=== PATIENT | female | born 1990 | race Caucasian/White ===

== ENCOUNTER → 2018-08-28 09:20 | Outpatient (CLI) | payer OTHER, SELFPAY ==
[2018-08-28 09:59] LABS: Add Manual Diff / Slide Review NO; Basophils Absolute Auto 100 /uL (0-100); Basophils Percent Auto 0.7 % (0-2); Eosinophils Absolute Auto 100 /uL (0-450); Eosinophils Percent Auto 1.6 % (2-4); Hemoglobin 14.7 g/dL (12.0-16.0); Lymphocytes Absolute Auto 2200 /uL (1100-4500); Lymphocytes Percent Auto 26.1 % (25-40); Mean Corpuscular HGB Conc 33.5 % (30-36); Mean Corpuscular Hemoglobin 28.7 PG (26-34); Mean Corpuscular Volume 85.7 fL (80-100); Monocytes Absolute Auto 500 /uL (0-900); Monocytes Percent Auto 6.6 % (3-14); Neutrophils Absolute Auto 5400 /uL (1500-7000); Platelet Count 255 X10^3/uL (150-400); Red Blood Cell Count 5.13 X10^6/uL (4.0-5.2); Red Cell Distribution Width 13.7 % (11.6-14.8); White Blood Cell Count 8.3 X10^3/uL (4.5-11.0)
[2018-08-28 11:05] LABS: Alanine Aminotransferase 32 IU/L (9-52); Albumin 4.8 g/dL (3.5-5.0); Albumin Globulin Ratio 1.5 (1.0-2.8); Alkaline Phosphatase 51 U/L (38-126); Aspartate Aminotransferase 22 IU/L (14-36); BUN Creatinine Ratio 23.3 (6-22); Blood Urea Nitrogen 14 mg/dL (7-17); Calcium 9.6 mg/dL (8.4-10.2); Carbon Dioxide 24 mmol/L (22-32); Chloride 100 mmol/L (98-107); Estimated Glomerular Filt Rate > 60.0 mL/min (>60); Globulin 3.1 g/dL (1.7-4.1); Glucose 93 mg/dL (70-100); HEMOLYSIS 23 (0-50); Sodium 137 mmol/L (137-145); Total Protein 7.9 g/dL (6.3-8.2)
== END ==
PROVIDERS: PCP Family Medicine; Visit Provider Family Medicine
DX: R63.5 Abnormal weight gain (principal); Z90.49 Acquired absence of other specified parts of digestive tract
CPT/HCPCS: 36415; 80053; 84443; 85025

== ENCOUNTER 2018-10-02 10:15 | Outpatient (RCR) | payer OTHER, SELFPAY ==
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
--- NOTE | 2018-09-29 08:55 | PT.OPPOC ---
Current Diagnoses Cervicalgia (09/28/18) Pain in left lower leg (09/28/18) Provider Visit Care Team Role Provider Type Ave Gaines MD Attending Provider Physician Primary Care Provider Specialty: Family Practice Address: [address] [place] [address], [facility] Email: [email or web address] Plan Of Care PT-OP-T Assessment and Plan Start: 09/28/18 13:30 Freq: Status: Active Protocol: Document 09/28/18 13:36 LRN (Rec: 09/28/18 15:19 LRN [id number]) Physical Therapy Assessment Evaluation Complexity Number of Personal Factors/Comorbidities 1-2 Number of Body Systems Impaired 4 or More Clinical Presentation at Evaluation Stable Impairments Impairments Activity Tolerance Pain Posture ROM Soft Tissue Mobility Strength Transfers Goals Three Impairment 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 LTG Duration 11/29/18 Two Impairment L lower leg pain limiting activity tolerance Mcc Goal (LTG) Decrease L lower leg pain to no greater than 1/10 with pt able to return to weigh lifting and participation in recreational activities with minimal onset of pain that pt is able to control with positioning and exercise. LTG Duration 11/29/18 One Impairment Lacks appropriate self care HEP Mcc Goal (LTG) Pt will be independent with a self care HEP. LTG Duration 11/29/18 Assessment Summary Assessment Pt presents with signs and symptoms of low back mechanical and soft tissue dysfunction related to her L lower leg pain, presenting with a +PSLR and responding well to manual lumbar traction . She has soft tissue dysfunction of the lumbar paraspinal, upper gluteals and to a lesser extent the L lower leg musculature with muscle guarding present. LE weakness of L5 myotome is present. She has a mechanical dysfunction with her lumbar spine and sacrum in a left rotation and increased lordosis. The pt needs further postural training, soft tissue and neural stretching, and strengthening of the L LE and core. Physical Therapy Plan Frequency and Duration Frequency of Treatment 2x/Week Plan of Care Start Date 09/28/18 Plan of Care End Date 11/30/18 Therapeutic Interventions Therapeutic Interventions Aquatic Therapy Balance Training Home Exercise Program Manual Therapy Neuromuscular Re-education Patient/Caregiver Education Self-Care/Home Management Soft Tissue Mobilization Therapeutic Exercises Modalities Electric Stimulation Hot Packs Traction- Mechanical Ultrasound Next Visit Focus/Plan Next Note Type Progress Note Next Visit Plan Review and issue HEP handout ( LE hamstring stretch), postural training, L ankle strengthening, R gluteal strengthening, sacral mob, LB care for probable herniated L5 disc. Have pt complete a functional assessment of LE's: LEFS or FGA. Might check balance. Plan of Care Dates Plan of Care Start Date 09/28/18 Plan of Care End Date 11/30/18 Please Sign and Return: I have reviewed this Plan of Care and certify that the skilled therapy services above are required to meet the patient?s needs. Physician Signature Date Printed Name and Credentials Clinical Instructor Signature Printed Name and Credentials
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
== END 2018-10-03 12:26 ==
LOC: PHYS 10:15
PROVIDERS: PCP Family Medicine; Visit Provider Family Medicine
DX: M54.2 Cervicalgia (principal); M79.662 Pain in left lower leg
CPT/HCPCS: 97110; 97140; 97161; 97535

== ENCOUNTER → 2020-06-05 08:09 | Outpatient (CLI) | payer OTHER, SELFPAY ==
--- NOTE | 2020-06-05 08:12 | DI.US.S_ITS ---
PROCEDURE: US ABDOMEN COMPLETE INDICATIONS: HISTORY LIVER TUMOR/RESECTION TECHNIQUE: Real-time scanning was performed of the abdominal and retroperitoneal organs, with image documentation. COMPARISON: [facility], MR, ABDOMEN W&WO CONTRAST, 12/31/2016, 14:59. [facility], MR, ABDOMEN W&WO CONTRAST, 05/06/2014, 12:51. [facility], CT, ABDOMEN W&WO CONTRAST, 10/17/2013, 10:59. [facility], US, ABDOMEN COMPLETE, 10/02/2012, 8:47. FINDINGS: Liver: The left hepatic lobe has been resected. There is a solid nonvascular mass with an echogenic center and a hypoechoic rim seen involving right posterior lobe of the liver that measures up to 1.8 cm. The main portal vein demonstrates normal size and is patent. Gallbladder: This level is improved compared to the prior examination. Biliary ducts: Intrahepatic bile ducts are non-dilated. Extrahepatic bile duct caliber measures 8 mm, which is within normal limits for a postcholecystectomy patient. Pancreas: Not seen, obscured by overlying bowel gas. Spleen: Spleen is normal in size and homogeneous in echotexture. Kidneys: Kidneys are normal in size and echotexture. Right kidney measures 11.2 cm long; left kidney measures 10.9 cm long. No hydronephrosis or nephrolithiasis. No solid masses. The renal cortex measures within normal limits for thickness. Aorta: Visualized aorta is normal in caliber at less than 3 cm. Iliacs: Proximal common iliac arteries are normal in caliber at less than 2.5 cm. IVC: Not seen. Miscellaneous: No free abdominal fluid. IMPRESSION: Within the right liver, there is lesion that correlates well with the previously seen liver lesion. However, if clinically appropriate, please consider a dedicated follow-up liver MRI (without and with contrast) for further evaluation (assuming that there is no contraindication). Left hepatic lobectomy. Status post cholecystectomy, without donavan biliary dilatation. Dictated by: Lance Riley M.D. on 06/05/2020 at 10:27 Approved by: Lance Riley M.D. on 06/05/2020 at 10:30
--- NOTE | 2020-06-05 08:12 | DI.RAD.S_ITS ---
PROCEDURE: XR ANKLE LT MIN 3V INDICATIONS: chronic ankle pain, remote h/o injury TECHNIQUE: 3 views of the ankle were acquired. COMPARISON: None. FINDINGS: Bones: No fractures or dislocations. Ankle mortise is normally aligned. No suspicious bony lesions. Mild tibiotalar and intertarsal joint degeneration. Soft tissues: No tibiotalar joint effusion. Achilles tendon appears normal. IMPRESSION: No fracture or dislocation. Mild degenerative joint disease. Dictated by: Key Brandt M.D. on 06/05/2020 at 17:26 Approved by: Key Brandt M.D. on 06/05/2020 at 17:27
[2020-06-05 09:58] LABS: Alanine Aminotransferase 25 IU/L (<35); Albumin 4.8 g/dL (3.5-5.0); Albumin Globulin Ratio 1.5 (1.0-2.8); Alkaline Phosphatase 53 U/L (38-126); Aspartate Aminotransferase 30 IU/L (14-36); BUN Creatinine Ratio 20.8 (6-22); Bilirubin Total 1.3 mg/dL (0.2-1.3); Blood Urea Nitrogen 15 mg/dL (7-17); Calcium 9.4 mg/dL (8.4-10.2); Carbon Dioxide 29 mmol/L (22-32); Chloride 102 mmol/L (98-107); Estimated Glomerular Filt Rate > 60.0 mL/min (>60); Globulin 3.2 g/dL (1.7-4.1); Glucose 100 mg/dL (70-100); HEMOLYSIS < 15 (0-50); Potassium 4.3 mmol/L (3.4-5.1); Sodium 137 mmol/L (137-145)
[2020-06-05 10:12] LABS: Add Manual Diff / Slide Review NO; Basophils Absolute Auto 100 /uL (0-100); Eosinophils Absolute Auto 200 /uL (0-450); Hematocrit 42.7 % (36-46); Hemoglobin 14.5 g/dL (12.0-16.0); Lymphocytes Absolute Auto 2500 /uL (1100-4500); Lymphocytes Percent Auto 32.5 % (25-40); Mean Corpuscular HGB Conc 33.9 % (30-36); Mean Corpuscular Volume 85.6 fL (80-100); Monocytes Absolute Auto 600 /uL (0-900); Monocytes Percent Auto 7.3 % (3-14); Neutrophils Absolute Auto 4400 /uL (1500-7000); Neutrophils Percent Auto 57.2 % (50-75); Platelet Count 295 X10^3/uL (150-400); Red Blood Cell Count 4.99 X10^6/uL (4.0-5.2); Red Cell Distribution Width 13.1 % (11.6-14.8); White Blood Cell Count 7.7 X10^3/uL (4.5-11.0)
[2020-06-05 10:27] LABS: TSH w/ Reflex to FT4 1.35 uIU/mL (0.47-4.68)
== END ==
PROVIDERS: PCP Family Medicine; Referring Provider Family Medicine; Visit Provider Family Medicine
DX: D49.0 Neoplasm of unspecified behavior of digestive system (principal); M25.572 Pain in left ankle and joints of left foot; E28.2 Polycystic ovarian syndrome; M19.072 Primary osteoarthritis, left ankle and foot; R93.2 Abnormal findings on diagnostic imaging of liver and biliary tract
CPT/HCPCS: 36415; 73610; 76700; 80053; 84443; 85025

== ENCOUNTER → 2020-07-02 08:35 | Outpatient (CLI) | payer OTHER, SELFPAY ==
--- NOTE | 2020-07-02 08:37 | DI.MRI.S_ITS ---
PROCEDURE: MR ABDOMEN WO/W CON INDICATIONS: hx of hepatic lobe resection TECHNIQUE: Coronal HASTE, axial 2D FLASH in- and [id number]; axial breath-hold T2 FSE. Dynamic axial VIBE during the administration of contrast; post-contrast coronal VIBE or 2D FLASH with fat saturation from the hepatic dome to the iliac crests. Optional diffusion weighted imaging and ADC may be performed. COMPARISON: [facility], US, ABDOMEN COMPLETE, 02/28/2007, 17:35. CT, ABDOMEN/PELVIS WITH CONTRAST, 02/28/2007, 19:25. CT, ABDOMEN W&WO CONTRAST, 10/30/2012, 10:00. [facility], CT, ABDOMEN W&WO CONTRAST, 10/17/2013, 10:59. [facility], MR, ABDOMEN W&WO CONTRAST, 05/06/2014, 12:51. [facility], MR, ABDOMEN W&WO CONTRAST, 12/05/2013, 20:02. [facility], MR, ABDOMEN W&WO CONTRAST, 12/31/2016, 14:59. [facility], US, US ABDOMEN COMPLETE, 06/05/2020, 8:28. FINDINGS: Image quality: Excellent. Lung bases: No basal pleural effusions. Heart size is normal. Solid organs: There are postsurgical changes related to remote left hepatic lobe resection with compensatory hypertrophy of the right hepatic lobe. Three lesions are identified in liver, demonstrating similar signal characteristics and enhancing pattern (hypointense T1, hyperintense T2, restricted diffusion and postcontrast enhancement). Lesion #1 is seen central liver within segment 8 measuring 1.5 cm. Lesion #2 is in the segment 6 measuring 1.7 cm. Lesion #3 is in segment 5 measuring 1.5 cm. Lesion #1 and #2 were present on 12/31/2016 and appear minimally changed in size but appear more conspicuous with stronger contrast enhancement. The lesion #3 is new. Gallbladder is surgically absent. Biliary system is non dilated. Pancreas is normal in morphology. Spleen is normal in size and enhancement. No adrenal nodules. Both kidneys demonstrate normal size and enhancement, without hydronephrosis. Nodes and vessels: No retroperitoneal or mesenteric adenopathy by size criteria. Aorta and inferior vena cava are normal in size. Bowel and peritoneum: Unenhanced bowel loops are normal in caliber. No free fluid. Bones and soft tissues: No ventral hernias. Bone marrow is normal in overall signal. IMPRESSION: 1. Three hepatic masses are identified on the current examination. Lesion #1 and #2 were present on the last exam dated 12/31/2016 and appear minimally changed. Lesion #3 is new. All 3 lesions demonstrate identical signal characteristics with progressive accumulation of contrast relative to normal liver parenchyma on delayed images rather than contrast washout. These lesions are likely benign, such as focal nodular hyperplasia or atypical hemangiomas. Since there is interval development of a new lesion, close imaging follow-up is suggested. Next follow-up imaging may be obtained in 3-6 months. Dictated by: Key Brandt M.D. on 07/02/2020 at 11:16 Approved by: Key Brandt M.D. on 07/02/2020 at 18:10
== END ==
PROVIDERS: PCP Family Medicine; Referring Provider Family Medicine; Visit Provider Family Medicine
DX: D13.4 Benign neoplasm of liver (principal)
CPT/HCPCS: 74183

== ENCOUNTER → 2020-08-25 09:11 | Outpatient (CLI) | payer OTHER, SELFPAY ==
[2020-08-25 09:35] LABS: Add Manual Diff / Slide Review NO; Basophils Absolute Auto 100 /uL (0-100); Basophils Percent Auto 0.9 % (0-2); Eosinophils Absolute Auto 200 /uL (0-450); Eosinophils Percent Auto 2.6 % (2-4); Hematocrit 42.8 % (36-46); Hemoglobin 14.1 g/dL (12.0-16.0); Lymphocytes Absolute Auto 2100 /uL (1100-4500); Lymphocytes Percent Auto 33.5 % (25-40); Mean Corpuscular Hemoglobin 28.6 PG (26-34); Mean Corpuscular Volume 86.6 fL (80-100); Monocytes Absolute Auto 400 /uL (0-900); Monocytes Percent Auto 7.1 % (3-14); Neutrophils Absolute Auto 3500 /uL (1500-7000); Neutrophils Percent Auto 55.9 % (50-75); Platelet Count 274 X10^3/uL (150-400); Red Blood Cell Count 4.94 X10^6/uL (4.0-5.2); Red Cell Distribution Width 13.6 % (11.6-14.8); White Blood Cell Count 6.2 X10^3/uL (4.5-11.0)
[2020-08-25 10:48] LABS: Alanine Aminotransferase 27 IU/L (<35); Albumin 4.8 g/dL (3.5-5.0); Albumin Globulin Ratio 1.7 (1.0-2.8); Alkaline Phosphatase 45 U/L (38-126); Aspartate Aminotransferase 32 IU/L (14-36); BUN Creatinine Ratio 16.9 (6-22); Bilirubin Total 0.8 mg/dL (0.2-1.3); Blood Urea Nitrogen 13 mg/dL (7-17); Calcium 10.1 mg/dL (8.4-10.2); Carbon Dioxide 30 mmol/L (22-32); Chloride 101 mmol/L (98-107); Estimated Glomerular Filt Rate > 60.0 mL/min (>60); Globulin 2.9 g/dL (1.7-4.1); Glucose 101 mg/dL (70-100); HEMOLYSIS < 15 (0-50); Potassium 4.7 mmol/L (3.4-5.1); Sodium 137 mmol/L (137-145); Total Protein 7.7 g/dL (6.3-8.2)
[2020-08-25 10:53] LABS: Free T4, Direct Thyroxine 0.86 ng/dL (0.78-2.19)
[2020-08-25 11:07] LABS: Thyroid Stimulating Hormone 1.56 uIU/mL (0.47-4.68)
== END ==
PROVIDERS: PCP Registered Nurse; Referring Provider Registered Nurse; Visit Provider Registered Nurse
DX: R53.83 Other fatigue (principal); Z83.49 Family history of other endocrine, nutritional and metabolic diseases
CPT/HCPCS: 36415; 80053; 84439; 84443; 85025

== ENCOUNTER → 2023-05-19 07:07 | Outpatient (CLI) | payer OTHER, SELFPAY ==
[2023-05-19 10:58] LABS: Vitamin B12 Reflex MMA if <400 373 pg/mL (239-931)
[2023-05-19 11:29] LABS: Vitamin D 25 Hydroxy (D3) 27.1 ng/mL (30.0-100.0)
[2023-05-24 01:13] LABS: Methylmalonic Acid,Serum 160 nmol/L (0-378)
== END ==
LOC: LAB 07:07
PROVIDERS: PCP Family Medicine; Referring Provider Family Medicine; Visit Provider Family Medicine
DX: Z13.21 Encounter for screening for nutritional disorder (principal)
CPT/HCPCS: 36415; 82306; 82607; 83921

== ENCOUNTER → 2023-09-06 08:44 | Outpatient (CLI) | payer OTHER, SELFPAY ==
[2023-09-06 09:03] LABS: Add Manual Diff / Slide Review NO; Basophils Absolute Auto 100 /uL (0-100); Basophils Percent Auto 0.9 % (0-2); Eosinophils Absolute Auto 200 /uL (0-450); Eosinophils Percent Auto 1.4 % (2-4); Hematocrit 41.6 % (36-46); Hemoglobin 14.2 g/dL (12.0-16.0); Lymphocytes Absolute Auto 2300 /uL (1100-4500); Lymphocytes Percent Auto 19.7 % (25-40); Mean Corpuscular HGB Conc 34.1 % (30-36); Mean Corpuscular Hemoglobin 28.9 PG (26-34); Mean Corpuscular Volume 84.8 fL (80-100); Monocytes Absolute Auto 700 /uL (0-900); Monocytes Percent Auto 6.4 % (3-14); Neutrophils Absolute Auto 8400 /uL (1500-7000); Neutrophils Percent Auto 71.6 % (50-75); Platelet Count 291 X10^3/uL (150-400); Red Cell Distribution Width 13.3 % (11.6-14.8); White Blood Cell Count 11.7 X10^3/uL (4.5-11.0)
[2023-09-06 09:29] LABS: Alanine Aminotransferase 31 IU/L (<35); Albumin 4.9 g/dL (3.5-5.0); Albumin Globulin Ratio 1.5 (1.0-2.8); Alkaline Phosphatase 53 U/L (38-126); Aspartate Aminotransferase 24 IU/L (14-36); Bilirubin Total 1.1 mg/dL (0.2-1.3); Bilirubin Unconjugated 1.1 mg/dL (0.0-1.1); Globulin 3.2 g/dL (1.7-4.1); HEMOLYSIS < 15 (0-50); Total Protein 8.1 g/dL (6.3-8.2)
[2023-09-06 09:54] LABS: Hepatitis B Surface Antigen NEGATIVE s/c (NEGATIVE); Rubella Antibody IgG 21.8 IU/mL (>15)
[2023-09-06 10:10] LABS: HIV 1 & 2 Ab/Ag 4th Gen Combo NEGATIVE (NEGATIVE); Hep C Virus Ab w/Reflex Quant NEGATIVE s/c (NEGATIVE)
[2023-09-07 08:22] LABS: RPR Screen Non Reactive (Non Reactive)
[2023-09-07 11:36] LABS: Varicella IgG Antibody 1793 index (Immune >165)
== END ==
PROVIDERS: PCP Family Medicine; Referring Provider Obstetrics & Gynecology; Visit Provider Obstetrics & Gynecology
DX: Z34.00 Encounter for supervision of normal first pregnancy, unspecified trimester (principal); D49.0 Neoplasm of unspecified behavior of digestive system
CPT/HCPCS: 36415; 80055; 80076; 86787; 86803; 86850; 86900; 86901; 87389

== ENCOUNTER → 2023-09-09 16:24 | Outpatient (CLI) | payer OTHER, SELFPAY ==
[2023-09-09 18:59] LABS: HCG Quantitative /Beta subunit 70655 mIU/mL
== END ==
PROVIDERS: PCP Family Medicine; Referring Provider Obstetrics & Gynecology; Visit Provider Obstetrics & Gynecology
DX: O20.9 Hemorrhage in early pregnancy, unspecified (principal)
CPT/HCPCS: 36415; 84702

== ENCOUNTER → 2023-09-12 07:24 | Outpatient (CLI) | payer OTHER, SELFPAY ==
[2023-09-12 10:08] LABS: HCG Quantitative /Beta subunit 67175 mIU/mL
== END ==
PROVIDERS: PCP Family Medicine; Referring Provider Obstetrics & Gynecology; Visit Provider Obstetrics & Gynecology
DX: O20.9 Hemorrhage in early pregnancy, unspecified (principal)
CPT/HCPCS: 36415; 84702

== ENCOUNTER → 2023-09-15 07:35 | Outpatient (CLI) | payer OTHER, SELFPAY ==
--- NOTE | 2023-09-15 07:36 | DI.US.S_ITS ---
PROCEDURE: US OB <= 14 WEEKS FETUS INDICATIONS: formal dating, possible arcuate vs uterine septum OUTSIDE/PRIOR DATING DATA: Last menstrual period (LMP): 07/06/2023. LMP-based estimated date of delivery (CHARMAINE): 04/11/2024. First dating scan (date and location): 09/06/2023, outside. Estimated date of delivery (CHARMAINE) from first dating scan: 04/22/2024. TECHNIQUE: Real-time scanning was performed of the fetus and maternal pelvic organs, with image documentation. Endovaginal scanning was also performed to better visualize the fetus and maternal ovaries. COMPARISON: None. FINDINGS: Embryo: pole is identified with crown-rump length of 1.97 centimeters, consistent with 8 weeks and 4 days. Yolk sac is present. There is a cystic structure adjacent to the cord near the placental cord insertion measuring 7 x 6 x 6 millimeters. Heart rate: 182 Subchronic bleed measuring 1.6 x 0.9 x 0.6 centimeters. Maternal organs: Ovaries are within normal limits. Cervix is closed measuring 3.9 centimeters. Uterus appears within normal limits, no anatomical variations are identified. IMPRESSION: 1. Single live intrauterine consistent with 8 weeks and 4 days. 2. Cystic structure near the placental cord insertion measuring 7 millimeters. Recommend attention on follow-up. 3. Subchronic hemorrhage measuring up to 1.6 centimeters. 4. Uterus appears within normal limits. No anatomical variations are identified. We strive to produce accurate, complete, and clear reports of imaging services. To assist us in improving patient care, this report was composed using standard report templates and voice recognition software. Therefore, it may contain abnormal punctuation, insertions and/or omissions. Occasional wrong-word or sound-alike substitutions may occur. Though we review the report and make efforts to correct it, we do recommend that the report be read carefully in proper context to recognize any text inaccuracies. Dictated by: Padilla Paul M.D. on 09/15/2023 at 11:57 Approved by: Padilla Paul M.D. on 09/15/2023 at 12:00
--- NOTE | 2023-09-15 07:43 | DI.US.S_ITS ---
PROCEDURE: US ABDOMEN LIMITED INDICATIONS: hx hepatic neoplasm, currently TECHNIQUE: Real-time scanning was performed of the abdominal and retroperitoneal organs, with image documentation. COMPARISON: [facility], US, US ABDOMEN COMPLETE, 06/05/2020, 8:28. [facility], MR, MR ABDOMEN WO/W CON, 07/02/2020, 8:50. FINDINGS: Liver: Increased liver echogenicity. Hypoechoic region along the hepatorenal fossa measuring 4.3 x 4.4 x 3.2 centimeters, not corresponding to any lesion seen on comparison MRI. Additional hyperechoic lesions are identified. These measure as follows: -1.7 x 1.4 x 1.6 centimeter lesion in segment 8, grossly unchanged from comparison MRI. -3.9 x 2.9 x 4.3 centimeter lesion in segment 5, without corresponding lesion on MRI. Gallbladder: Absent. Biliary ducts: Intrahepatic bile ducts are non-dilated. Extrahepatic bile duct caliber measures 6 mm. Normal is 6-7 mm or less in diameter, or 10 mm or less post-cholecystectomy. Pancreas: Visualized portions of the pancreas are sonographically normal. Miscellaneous: No free abdominal fluid. Right kidney measures 12.9 centimeters, with an extrarenal pelvis. No hydronephrosis. heart tones are present, measuring 182 beats per minute. IMPRESSION: Stable segment 8 liver lesion. Segment 5 liver lesion measures 3.9 x 2.9 x 4.3 centimeters, without corresponding lesion seen on comparison MRI. Of note: Lesions such as focal nodular hyperplasia are notoriously difficult to visualize under ultrasound, so comparison is likely less specific than desired. New hypoechoic region along the hepatorenal fossa, possibly fat sparing. No corresponding MRI lesion. Dictated by: Travis Portillo M.D. on 09/15/2023 at 15:11 Approved by: Travis Portillo M.D. on 09/15/2023 at 15:16
== END ==
PROVIDERS: PCP Family Medicine; Referring Provider Family Medicine; Visit Provider Family Medicine
DX: Z34.00 Encounter for supervision of normal first pregnancy, unspecified trimester (principal); K76.89 Other specified diseases of liver; Z3A.14 14 weeks gestation of pregnancy; Z90.49 Acquired absence of other specified parts of digestive tract
CPT/HCPCS: 76705; 76801; 76817

== ENCOUNTER 2023-09-24 07:16 | Emergency (ER) | payer OTHER, SELFPAY ==
[2023-09-24 07:24] VITALS: BP 144/84; PULSE 98; RESP 18; TEMP 36.9; O2SAT 99; BMI 36.1
[2023-09-24 07:30] VITALS: BP 141/75; PULSE 88; O2SAT 98
--- NOTE | 2023-09-24 07:36 | ED_ITS ---
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 Patient presents with complaint of right foot pain. Patient states it is throughout the entire foot little bit more on the lateral side but over onto the medial side as well. She does have little bit of discomfort up into his calf. She states she always has some calf discomfort. Patient states was very painful to weightbear yesterday less so today. She is still quite uncomfortable. She has not noticed any redness, warmth or swelling or ecchymosis. She does get acupuncture. Patient denies any trauma or injuries that she recalls. She has not appreciate any other changes to her lower extremity. She does not typically get symptoms in her foot. Patient states her other foot has felt fine. Patient laceration approximately 10 weeks states no other regular medical issues. She is on prenatals but no prescription medications. No tobacco, no regular alcohol, no recreational drugs. Related Data Home Medications Medication Instructions Recorded Confirmed vitamin-ferrous sulfate tab PO 08/30/23 09/06/23 27 mg iron-folic acid 0.8 mg tablet Allergies Allergy/AdvReac Type Severity Reaction Status Date / Time amoxicillin [AMOXICILLIN] Allergy Intermediate Rash Verified 09/06/23 08:00 Review of Systems Review of Systems ROS Unobtainable: All systems reviewed & are unremarkable except as noted in HPI and below Patient History Medical History Chronic diarrhea Presence of intrauterine contraceptive device (04/27/17) Generalized anxiety disorder Surgical History History of surgery of liver [place] teeth extracted Status post cholecystectomy (~2006) Family History Mother Bipolar disorder Alcoholism Father Hypertension Drug abuse Heart disease Grandmother Hypertension Stroke Grandfather Hypertension Diabetes mellitus Alcoholism Uncle Heart disease Social History marital status: number of children: 1 (Pt is the guardian of her youngest brother) household members: spouse and family (legal guardian of youngest brother) lives independently: Yes caregiver/support person: Yes housing: house pets and animals: Yes (dogs, cat, chickens; aware of precautions, managing litter box) education level: college (bachelor's degree) occupational status: 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, 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)) current occupational exposures/hazards: Yes ([employer]) special kermit needs: No travel history: recent ([place]) seatbelt use: always helmet use: Yes water heater temp set < 120 deg: Yes working smoke detector in home: Yes fire extinguisher in home: No (Will get one today) carbon monox detector in home: Yes firearms in home: Yes firearms unloaded and locked: Yes do you feel safe at home: Yes Smoking Status: Never smoker second hand exposure: No alcohol intake: former (1-2/week when not ) substance use type: marijuana (not while /) during the past year weight has: increased > 10 lbs well-balanced diet: daily or most days daily servings fruits/ve or more times/day caffeine: Yes (not since learning of , causing anxiety now) Type(s) of exercise: walking, bicycling, weight lifting and other (roller blading) frequency: 3-4 times per week Smoking Status: Never smoker alcohol intake frequency: holidays/special occasions only Substance Use Type: marijuana Exam Narrative Exam Narrative: GENERAL: Alert and oriented x three, female in mild distress HEENT: Head normocephalic, atraumatic, EOMI, pupils reactive, face symmetric, moist mucous membranes NECK: Supple, full range of motion CARDIOVASCULAR: Regular rate and rhythm without murmurs, rubs or gallops. RESPIRATORY: Breath sounds equal bilaterally, no wheezes rales or rhonchi. ABDOMEN: Soft, nontender. Normoactive bowel sounds all 4 quadrants. No guarding or rebound, rigidity, no mass EXTREMITIES: Normal range of motion, no clubbing. No edema. No warmth, no erythema, no ecchymosis, patient has some generalized tenderness throughout her foot. But no discrete bony tenderness. She has full range of motion. She is 2+ dorsalis pedis. Cap refills less than 2 seconds. She does not have any obvious swelling of her lower extremities right compared to left. States some mild tenderness on calf squeeze. Neurovascularly intact. NEUROLOGICAL: Cranial nerves II through XII grossly intact. Moving all extremities SKIN: Warm, dry, no petechiae, no rashes or lesions. Initial Vital Signs Initial Vital Signs: Vital Signs Temperature 98.4 F 09/24/23 07:24 Pulse Rate 98 H 09/24/23 07:24 Respiratory Rate 18 09/24/23 07:24 Blood Pressure 144/84 H 09/24/23 07:24 Pulse Oximetry 99 09/24/23 07:24 Oxygen Delivery Method Room Air 09/24/23 07:24 Course Orders Ordered: ED Orders 09/24/23 07:48 US periph venous low extrem rt Stat XR foot RT min 3V Stat Vital Signs Vital signs: Vital Signs - 8 hr 09/24/23 07:24 09/24/23 07:30 09/24/23 07:30 Temperature 98.4 F Pulse Rate 98 H 88 Pulse Rate [Right Dorsalis Pedis] Respiratory Rate 18 Blood Pressure 144/84 H 141/75 H Pulse Oximetry 99 98 Oxygen Delivery Method Room Air 09/24/23 08:30 Temperature Pulse Rate Pulse Rate [Right Dorsalis Pedis] 70 Respiratory Rate Blood Pressure Pulse Oximetry Oxygen Delivery Method MDM - Extremity (Nontraumatic) Imaging Data Extremity x-ray #1: Radiologist's Impression: Close Vascular Ultrasound (Signed) Darcy Kiran - 09/24/23 Foot X-Ray (Signed) Darcy Kiran - 09/24/23 Abdomen Ultrasound (Signed) Travis Portillo - 09/15/23 Ultrasound (Signed) Padilla Paul - 09/15/23 Abdomen MRI (Signed) Hector Brandt - 07/02/20 Ankle X-Ray (Signed) Hector Brandt - 06/05/20 Abdomen Ultrasound (Signed) Lance Riley - 06/05/20 Launch?[address] [address] XRay Report Signed Patient: Nette Hernandez MR#: [id number] : 1990 Acct:[id number] Age/Sex: 33 / F Date of Service: 09/24/23 Loc: ED Accession Number: [id number] Procedure: XR foot RT min 3V Ordering Provider: Karla House D.O. PROCEDURE: XR FOOT RT MIN 3V INDICATIONS: pain foot, no trauma recalled, 10 wks preg TECHNIQUE: 3 views of the foot were acquired. COMPARISON: None. FINDINGS: Bones: No fractures or dislocations. No suspicious bony lesions. Soft tissues: No tibiotalar joint effusion. Achilles tendon appears normal. IMPRESSION: No visualized acute fracture or dislocation. However, if clinical concern and/or pain persist, short interval imaging followup in 7-10 days is recommended, as occult injury cannot be definitively excluded. Dictated by: Darcy Kiran M.D. on 09/24/2023 at 9:08 Approved by: Darcy Kiran M.D. on 09/24/2023 at 9:08 US - DVT: Radiologist's Impression: Nette Hernandez??33??F??1990 ? Allergy/Adv: amoxicillin Close Vascular Ultrasound (Signed) Darcy Kiran - 09/24/23 Foot X-Ray (Signed) Darcy Kiran - 09/24/23 Abdomen Ultrasound (Signed) Travis Portillo - 09/15/23 Ultrasound (Signed) Padilla Paul - 09/15/23 Abdomen MRI (Signed) Hector Brandt - 07/02/20 Ankle X-Ray (Signed) Hector Brandt - 06/05/20 Abdomen Ultrasound (Signed) Lance Riley - 06/05/20 [place] [address] Ultrasound Report Signed Patient: Nette Hernandez MR#: [id number] : 1990 Acct:[id number] Age/Sex: 33 / F Date of Service: 09/24/23 Loc: ED Accession Number: [id number] Procedure: US periph venous low extrem rt Ordering Provider: Karla House D.O. PROCEDURE: US PERIPH VENOUS LOW EXTREM RT INDICATIONS: right foot/calf pain, + TECHNIQUE: Real-time imaging, as well as color and pulse Doppler interrogation, were performed of the lower extremity deep veins from the inguinal ligament to the popliteal fossa, with documentation of the visualized calf veins. COMPARISON: None. FINDINGS: The common femoral, femoral, popliteal, and the visualized calf veins are normally compressible, and free of intraluminal thrombus. Color and pulse Doppler demonstrate normal phasic intraluminal flow. There is normal augmentation response to distal compression maneuver. IMPRESSION: No findings of lower extremity deep venous thrombosis. Dictated by: Darcy Kiran M.D. on 09/24/2023 at 9:07 Approved by: Darcy Kiran M.D. on 09/24/2023 at 9:08 [facility] Narrative Medical decision making narrative: 33-year-old female complaint of right foot pain, pain with weight-bearing no known trauma although she states she did have a spin class or if you want but states that is she does. She also states she is chronic calf pain and post legs normally. Patient's exam is overall benign. She is some slight tenderness on calf squeeze but no obvious swelling erythema or other changes. She is little bit high-risk for DVT so ultrasound was ordered. Also x-ray although patient does not recall any injury. X-ray is negative Ultrasound dvt is negative. Patient defers anything for pain, she would Tylenol at home which he states was helpful. Plan for weightbear as tolerated and follow up as needed. Discharge Plan Departure Patient Disposition: Home Clinical Impression: Foot pain, Activity Restrictions/Additional Instructions: Please follow up with your provider as needed. Your x-ray imaging and ultrasound are negative today. There was no obvious signs of infection or gout. You may continue with Tylenol up to a 1000 mg every 6 hours as needed for pain. You can elevate your lower extremity as needed and weightbear as tolerated. Please return for fevers new or worsening redness, swelling or pain, shortness of breath or chest pain, passing out, or other new or concerning changes. Prescriptions: No Action vit-ferrous sulfat-FA 27 mg iron- 0.8 mg tablet PO Referrals: Esther Jara DO [Primary Care Provider] - Stand Alone Forms: Patient Portal/API
--- NOTE | 2023-09-24 07:48 | DI.RAD.S_ITS ---
PROCEDURE: XR FOOT RT MIN 3V INDICATIONS: pain foot, no trauma recalled, 10 wks preg TECHNIQUE: 3 views of the foot were acquired. COMPARISON: None. FINDINGS: Bones: No fractures or dislocations. No suspicious bony lesions. Soft tissues: No tibiotalar joint effusion. Achilles tendon appears normal. IMPRESSION: No visualized acute fracture or dislocation. However, if clinical concern and/or pain persist, short interval imaging followup in 7-10 days is recommended, as occult injury cannot be definitively excluded. Dictated by: Darcy Kiran M.D. on 09/24/2023 at 9:08 Approved by: Darcy Kiran M.D. on 09/24/2023 at 9:08
--- NOTE | 2023-09-24 07:48 | DI.US.S_ITS ---
PROCEDURE: US PERIPH VENOUS LOW EXTREM RT INDICATIONS: right foot/calf pain, + TECHNIQUE: Real-time imaging, as well as color and pulse Doppler interrogation, were performed of the lower extremity deep veins from the inguinal ligament to the popliteal fossa, with documentation of the visualized calf veins. COMPARISON: None. FINDINGS: The common femoral, femoral, popliteal, and the visualized calf veins are normally compressible, and free of intraluminal thrombus. Color and pulse Doppler demonstrate normal phasic intraluminal flow. There is normal augmentation response to distal compression maneuver. IMPRESSION: No findings of lower extremity deep venous thrombosis. Dictated by: Darcy Kiran M.D. on 09/24/2023 at 9:07 Approved by: Darcy Kiran M.D. on 09/24/2023 at 9:08
[2023-09-24 08:30] VITALS: PULSE 70
[2023-09-24 09:48] VITALS: BP 139/71; PULSE 80; RESP 16; TEMP 36.7; O2SAT 98
== END 2023-09-24 09:49 | disposition home or self-care (01) ==
PROVIDERS: Emergency Provider Emergency Medicine; PCP Family Medicine
DX: O26.891 Other specified pregnancy related conditions, first trimester (principal); M79.671 Pain in right foot; Z3A.10 10 weeks gestation of pregnancy
CPT/HCPCS: 73630; 93971; 99281; 99283

== ENCOUNTER → 2023-10-04 13:23 | Outpatient (CLI) | payer OTHER, SELFPAY | PROVIDERS: PCP Family Medicine; Referring Provider Obstetrics & Gynecology; Visit Provider Obstetrics & Gynecology | DX: Z34.01 Encounter for supervision of normal first pregnancy, first trimester (principal) | CPT/HCPCS: 36415 ==

== ENCOUNTER → 2023-11-04 10:05 | Outpatient (CLI) | payer OTHER, SELFPAY ==
[2023-11-04 11:22] LABS: Natera Collection Specimen Collected
== END ==
PROVIDERS: PCP Family Medicine; Referring Provider Obstetrics & Gynecology; Visit Provider Obstetrics & Gynecology
DX: Z34.81 Encounter for supervision of other normal pregnancy, first trimester (principal)
CPT/HCPCS: 36415

== ENCOUNTER → 2023-12-05 06:43 | Outpatient (CLI) | payer OTHER, SELFPAY ==
--- NOTE | 2023-12-05 06:43 | DI.US.S_ITS ---
PROCEDURE: US OB >= 14 WEEKS FETUS INDICATIONS: anatomy scan OUTSIDE/PRIOR DATING DATA: Last menstrual period (LMP): 07/06/2023. LMP-based estimated date of delivery (CHARMAINE): 04/11/2024. First dating scan (date and location): 09/06/2023. Estimated date of delivery (CHARMAINE) from first dating scan: 04/22/2024. The calculations are made using the sonographic CHARMAINE of 04/22/2024. TECHNIQUE: Real-time scanning was performed of the fetus, with image documentation and biometric measurements. Endovaginal scanning: Not performed COMPARISON: [facility], , OB <= 14 WEEKS FETUS, 09/15/2023, 7:51. FINDINGS: General: A single living intrauterine gestation is present. Presentation: Vertex. Placenta: Placental position is anterior , without previa. Amniotic fluid index: 12.5 cm, normal range is 5-24 cm. Single deepest vertical pocket is 3.3 cm. heart rate: 141 beats per minute. Maternal cervical canal: 3.6 cm long. Normal lower limit is 2.5 cm. biometrics: Biparietal diameter: 4.6 cm, 20 weeks 0 days Head circumference: 17.7 cm, 20 weeks 1 day Abdominal circumference: 16.5 cm, 21 weeks 4 days Femur length: 3.4 cm, 20 weeks 4 days Clinically estimated gestational age: 20 weeks 1 day Composite gestational age from present scan: 20 weeks 4 days Estimated weight and percentile: 390 g, 88th percentile Anatomic survey: Neuro: Ventricles are non-dilated at less than 10 mm. Cisterna magna is normal at 3-11 mm. Cerebellum is normal in size and morphology. Nuchal skin fold: Normal at less than 6 mm between 14-21 weeks gestational age. Face: Nose and lips, facial profile are not well demonstrated. Spine: No evidence for spina bifida. Heart: 4-chambered heart is present. Right ventricular outflow tract not visualized. Diaphragm: Diaphragm is intact. Stomach: Left-sided stomach is present. Kidneys: No hydronephrosis. Normal is less than 5 mm in 2nd trimester, less than 7 mm in 3rd trimester. Cord: 3-vessel cord has orthotopic insertion. Bladder: Normal in size. Extremities: All 4 extremities identified. IMPRESSION: Single living intrauterine at 20 weeks 1 day, CHARMAINE of 04/22/2024. Estimated weight of 390 g, 88th percentile. Facial profile and right ventricular outflow tract not clearly identified. Short-term follow-up is recommended. We strive to produce accurate, complete, and clear reports of imaging services. To assist us in improving patient care, this report was composed using standard report templates and voice recognition software. Therefore, it may contain abnormal punctuation, insertions and/or omissions. Occasional wrong-word or sound-alike substitutions may occur. Though we review the report and make efforts to correct it, we do recommend that the report be read carefully in proper context to recognize any text inaccuracies. Dictated by: Travis Portillo M.D. on 12/05/2023 at 10:42 Approved by: Travis Portillo M.D. on 12/05/2023 at 10:47
== END ==
PROVIDERS: PCP Family Medicine; Referring Provider Obstetrics & Gynecology; Visit Provider Obstetrics & Gynecology
DX: Z34.92 Encounter for supervision of normal pregnancy, unspecified, second trimester (principal); Z3A.20 20 weeks gestation of pregnancy
CPT/HCPCS: 76811

== ENCOUNTER → 2024-01-02 06:43 | Outpatient (CLI) | payer OTHER, SELFPAY ==
--- NOTE | 2024-01-02 06:44 | DI.US.S_ITS ---
PROCEDURE: US OB FOLLOW UP INDICATIONS: RE-EVALUATE RVOT, NOSE/LIPS OUTSIDE/PRIOR DATING DATA: Last menstrual period (LMP): 07/06/2023. LMP-based estimated date of delivery (CHARMAINE): 04/11/2024. First dating scan (date and location): 09/06/2023. Estimated date of delivery (CHARMAINE) from first dating scan: 04/22/2024. The calculations are made using the ultrasound CHARMAINE of 04/22/2024. TECHNIQUE: Real-time scanning was performed of the fetus, with image documentation. Endovaginal scanning: Not performed COMPARISON: [facility], , OB >= 14 WEEKS FETUS, 12/05/2023, 7:01. FINDINGS: A single living intrauterine gestation is present. Presentation: Vertex. Placenta: Placental position is anterior, without previa. Amniotic fluid index: 18.7 cm, normal range is 5-24 cm. Single deepest vertical pocket is 5.6 cm. heart rate: 136 beats per minute. Maternal cervical canal: 3.5 cm long. Normal lower limit is 2.5 cm. Clinically estimated gestational age: 24 weeks 1 day RVOT is a within normal limits. Right upper extremity is within normal limits. Nose and lips are within normal limits. Facial profile not seen due to lie. IMPRESSION: 1. Pena living intrauterine at 24 weeks 1 day based on prior dating. 2. Normal placenta and amniotic fluid. 3. Normal RVOT heart view, upper extremity, and nose and lips. Dictated by: Giacomo Baker M.D. on 01/02/2024 at 16:48 Approved by: Giacomo Baker M.D. on 01/02/2024 at 17:00
== END ==
LOC: US 06:43
PROVIDERS: PCP Family Medicine; Referring Provider Obstetrics & Gynecology; Visit Provider Obstetrics & Gynecology
DX: Z34.02 Encounter for supervision of normal first pregnancy, second trimester (principal); Z3A.24 24 weeks gestation of pregnancy
CPT/HCPCS: 76816

== ENCOUNTER → 2024-01-17 07:52 | Outpatient (CLI) | payer OTHER, SELFPAY ==
[2024-01-17 10:21] LABS: Hematocrit 33.6 % (36-46); Hemoglobin 11.4 g/dL (12.0-16.0)
[2024-01-17 11:00] LABS: Alanine Aminotransferase 13 IU/L (<35); Albumin 3.6 g/dL (3.5-5.0); Albumin Globulin Ratio 1.2 (1.0-2.8); Alkaline Phosphatase 61 U/L (38-126); Aspartate Aminotransferase 14 IU/L (14-36); BUN Creatinine Ratio 12.5 (6-22); Bilirubin Total 0.7 mg/dL (0.2-1.3); Blood Urea Nitrogen 6 mg/dL (7-17); Calcium 9.1 mg/dL (8.4-10.2); Carbon Dioxide 22 mmol/L (22-32); Chloride 102 mmol/L (98-107); Estimated Glomerular Filt Rate > 60 mL/min (>60); GTT (PREG) 1 Hour PP 50gm Dose 94 mg/dL (76-139); Glucose 94 mg/dL (70-100); HEMOLYSIS < 15 (0-50); Potassium 3.9 mmol/L (3.4-5.1); Sodium 132 mmol/L (137-145); Total Protein 6.6 g/dL (6.3-8.2)
== END ==
PROVIDERS: PCP Family Medicine; Referring Provider Obstetrics & Gynecology; Visit Provider Obstetrics & Gynecology
DX: Z34.02 Encounter for supervision of normal first pregnancy, second trimester (principal); Z34.82 Encounter for supervision of other normal pregnancy, second trimester; Z3A.26 26 weeks gestation of pregnancy; D49.0 Neoplasm of unspecified behavior of digestive system
CPT/HCPCS: 36415; 80053; 82950; 85014; 85018

== ENCOUNTER → 2024-03-14 08:15 | Outpatient (CLI) | payer OTHER, SELFPAY ==
[2024-03-14 14:54] LABS: Urine N gonorrhoeae NOT DETECTED
[2024-03-14 15:03] LABS: Urine Chlamydia NOT DETECTED
== END ==
PROVIDERS: PCP Family Medicine; Visit Provider Obstetrics & Gynecology
DX: Z34.03 Encounter for supervision of normal first pregnancy, third trimester (principal); Z3A.34 34 weeks gestation of pregnancy
CPT/HCPCS: 87491; 87591

== ENCOUNTER 2024-03-14 08:33 | Observation (INO) | payer OTHER, SELFPAY ==
--- NOTE | 2024-03-14 | DI.US.S_ITS ---
PROCEDURE: US OB LIMITED INDICATIONS: EFW OUTSIDE/PRIOR DATING DATA: Last menstrual period (LMP): 07/06/2023. LMP-based estimated date of delivery (CHARMAINE): 04/11/2024. First dating scan (date and location): 09/06/2023. Estimated date of delivery (CHARMAINE) from first dating scan: 04/22/2020. The calculations are made using the ultrasound CHARMAINE of 06/23/2023. TECHNIQUE: Real-time scanning was performed of the fetus, with image documentation and biometric measurements. Endovaginal scanning: Not performed COMPARISON: Ob ultrasound 03/14/2024, 01/02/2024. FINDINGS: biometrics: Biparietal diameter: 8.5 cm Head circumference: 30.7 cm Abdominal circumference: 31.4 cm Femur length: 6.7 cm Clinically estimated gestational age: 34 weeks, 3 days Composite gestational age from present scan: 34 weeks, 4 days Estimated weight and percentile: 2513 g, 55th percentile Other: Not applicable. IMPRESSION: Single intrauterine gestation with estimated gestational age of 34 weeks, 4 days by biometry. Estimated weight in 55th percentile. We strive to produce accurate, complete, and clear reports of imaging services. To assist us in improving patient care, this report was composed using standard report templates and voice recognition software. Therefore, it may contain abnormal punctuation, insertions and/or omissions. Occasional wrong-word or sound-alike substitutions may occur. Though we review the report and make efforts to correct it, we do recommend that the report be read carefully in proper context to recognize any text inaccuracies. Approved by: Emily Llanos M.D.,Ph.D. on 03/14/2024 at 11:01
--- NOTE | 2024-03-14 08:49 | DI.US.S_ITS ---
PROCEDURE: US OB BIOPHYSICAL PROFILE INDICATIONS: Gestational Hypertension OUTSIDE/PRIOR DATING DATA: Last menstrual period (LMP): 07/06/2023. LMP-based estimated date of delivery (CHARMAINE): 04/11/2024. First dating scan (date and location): 09/06/2023. Estimated date of delivery (CHARMAINE) from first dating scan: 04/22/2024 working CHARMAINE. TECHNIQUE: Real-time scanning was performed of the fetus, with image documentation and biometric measurements. Biophysical profile was also obtained. COMPARISON: [facility], OB FOLLOW UP, 01/02/2024, 6:54. FINDINGS: General: A single living intrauterine gestation is present. Presentation: Vertex. Placenta: Placental position is anterior , without previa. Amniotic fluid index: 13.4 cm, normal range is 5-24 cm. Single deepest vertical pocket is 4.8 cm. heart rate: 132 beats per minute. Clinically estimated gestational age: 34 weeks and 3 days Biophysical profile: Tone: 2 points. Movement: 2 points. Respiration: 2 points. Largest pocket of fluid: 2 points. IMPRESSION: Single living intrauterine gestation. BPP is 8/8. SCARLET within normal limits at 13.4. Dictated by: Andrez Alexander M.D. on 03/14/2024 at 9:21 Approved by: Andrez Alexander M.D. on 03/14/2024 at 9:22
[2024-03-14 09:12] LABS: Add Manual Diff / Slide Review NO; Basophils Absolute Auto 100 /uL (0-100); Basophils Percent Auto 0.5 % (0-2); Eosinophils Absolute Auto 100 /uL (0-450); Eosinophils Percent Auto 0.9 % (2-4); Hematocrit 36.7 % (36-46); Hemoglobin 12.3 g/dL (12.0-16.0); Lymphocytes Absolute Auto 2100 /uL (1100-4500); Lymphocytes Percent Auto 16.1 % (25-40); Mean Corpuscular HGB Conc 33.4 % (30-36); Mean Corpuscular Hemoglobin 26.8 PG (26-34); Mean Corpuscular Volume 80.1 fL (80-100); Monocytes Absolute Auto 900 /uL (0-900); Monocytes Percent Auto 6.9 % (3-14); Neutrophils Absolute Auto 9700 /uL (1500-7000); Neutrophils Percent Auto 75.6 % (50-75); Platelet Count 255 X10^3/uL (150-400); Red Blood Cell Count 4.58 X10^6/uL (4.0-5.2); Red Cell Distribution Width 15.7 % (11.6-14.8); White Blood Cell Count 12.8 X10^3/uL (4.5-11.0)
[2024-03-14 09:26] LABS: Alanine Aminotransferase 13 IU/L (<35); Albumin 3.7 g/dL (3.5-5.0); Albumin Globulin Ratio 1.2 (1.0-2.8); Alkaline Phosphatase 98 U/L (38-126); Aspartate Aminotransferase 14 IU/L (14-36); BUN Creatinine Ratio 12.8 (6-22); Bilirubin Total 0.8 mg/dL (0.2-1.3); Blood Urea Nitrogen 6 mg/dL (7-17); Calcium 9.9 mg/dL (8.4-10.2); Carbon Dioxide 21 mmol/L (22-32); Chloride 106 mmol/L (98-107); Estimated Glomerular Filt Rate > 60 mL/min (>60); Globulin 3.1 g/dL (1.7-4.1); Glucose 98 mg/dL (70-100); HEMOLYSIS < 15 (0-50); Potassium 4.2 mmol/L (3.4-5.1); Sodium 133 mmol/L (137-145); Total Protein 6.8 g/dL (6.3-8.2)
[2024-03-14 09:27] LABS: Lactate Dehydrogenase 134 U/L (120-246); Uric Acid 4.2 mg/dL (2.5-6.2)
[2024-03-14 09:57] LABS: Creatinine Urine Random 13.67 mg/dL; Protein (Total) Urine Random 12 mg/dL (0-12); Protein Creatinine Ratio Urine 0.87 GRAM/24H
--- NOTE | 2024-03-14 20:39 | PM.OBTRLD ---
Visit Information Visit Information Date of evaluation: 03/14/24 Primary OB Provider: Fernanda Antunez On-call OB Provider: Fernanda Antunez Reason for Evaluation: Yes other Comments/Additional reasons for admission: Delayed documentation secondary to intervening patient care. 33yo PFSH Medical History Chronic diarrhea Presence of intrauterine contraceptive device (04/27/17) Generalized anxiety disorder Surgical History History of surgery of liver [place] teeth extracted Status post cholecystectomy (~2006) Family History Mother Bipolar disorder Alcoholism Father Hypertension Drug abuse Heart disease Grandmother Hypertension Stroke Grandfather Hypertension Diabetes mellitus Alcoholism Uncle Heart disease Social History marital status: number of children: 1 household members: spouse and family lives independently: Yes caregiver/support person: Yes housing: house pets and animals: Yes (dogs, cat, chickens; aware of precautions, managing litter box) education level: college occupational status: employed current occupational exposures/hazards: Yes ([employer]) special kermit needs: No travel history: recent seatbelt use: always helmet use: Yes water heater temp set < 120 deg: Yes working smoke detector in home: Yes fire extinguisher in home: No (Will get one today) carbon monox detector in home: Yes firearms in home: Yes firearms unloaded and locked: Yes do you feel safe at home: Yes Smoking Status: Never smoker second hand exposure: No alcohol intake: former substance use type: marijuana during the past year weight has: increased > 10 lbs well-balanced diet: daily or most days daily servings fruits/ve or more times/day caffeine: Yes (not since learning of , causing anxiety now) Type(s) of exercise: walking, bicycling, weight lifting and other frequency: 3-4 times per week Objective Labs 03/14/24 09:01 03/14/24 09:01 Labs: Laboratory Results - last 24 hr 03/14/24 03/14/24 09:00 09:01 WBC 12.8 H RBC 4.58 Hgb 12.3 Hct 36.7 MCV 80.1 MCH 26.8 MCHC 33.4 RDW 15.7 H Plt Count 255 Neut % (Auto) 75.6 H Lymph % (Auto) 16.1 L [place] % (Auto) 6.9 Eos % (Auto) 0.9 L Baso % (Auto) 0.5 Neut # (Auto) 9700 H Lymph # (Auto) 2100 [place] # (Auto) 900 Eos # (Auto) 100 Baso # (Auto) 100 Sodium 133 L Potassium 4.2 Chloride 106 Carbon Dioxide 21 L BUN 6 L Creatinine 0.47 L Estimated GFR > 60 BUN/Creatinine Ratio 12.8 Glucose 98 Uric Acid 4.2 Calcium 9.9 Total Bilirubin 0.8 AST 14 ALT 13 Alkaline Phosphatase 98 Lactate Dehydrogenase 134 Total Protein 6.8 Albumin 3.7 Globulin 3.1 Albumin/Globulin Ratio 1.2 U Random Total Protein 12 Urine Creatinine 13.67 Protein/Creatinin Ratio 0.87
--- NOTE | 2024-03-14 20:48 | PM.OBHP.1 ---
OB HPI Date/Time Date of admission: 03/14/24 Date Patient Seen: 03/14/24 Time Patient Seen: 12:15 History of Present Condition Chief complaint: new plethora, mild range BP : 1 Narrative: Nette Hernandez is a 33 year old female G1 at 34w3d by 7wk US presents to triage for further evaluation of new mild range BP in office at time of routine PNC with noted new facial plethora. Patient presented to office with complaints of marked increase in bilateral carpal tunnel symptoms and was noted to have new facial edema in comparison to prior encounters, asymptomatic persistent mild range BP in office (140s/70s, 150s/90s) and sent to L&D for serial BP monitoring, PIH labs with planned growth scan/BPP. +FM, denies VB, LOF, dysuria, ctx, vision changes. Has had intermittent DE PAZ for last 36h but minor (07/23) and has resolved spontaneously. 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; course notable for excessive maternal weight gain, normal 1h OGTT Indications Indication for induction OB: gestational HTN/pre-eclampsia History of Present care: good care Dating criteria: based on 1st trimester US only Ultrasounds: normal mid trimester US Obstetrical complications: gestational hypertension (new onset ) Medical complications: none Preadmission Labs Blood type: A (+) positive -: Antibody screen: negative, Cystic fibrosis screen: negative, GBS status: unknown, HBsAG: negative, HIV: negative and RPR/VDLR: negative -: Rubella: immune and Varicella: immune HCT: 36.7 HCAB: negative Cell-free DNA: low risk, XY 1 hr GTT: 94 Evaluation Evaluation Baseline heart rate: 140 Variability: Moderate (11-25) monitor accelerations: Present Monitor Decelerations: Absent Category of Tracing: Reactive Status: Category l PFSH Medical History Chronic diarrhea Presence of intrauterine contraceptive device (04/27/17) Generalized anxiety disorder Surgical History History of surgery of liver [place] teeth extracted Status post cholecystectomy (~2006) Family History Mother Bipolar disorder Alcoholism Father Hypertension Drug abuse Heart disease Grandmother Hypertension Stroke Grandfather Hypertension Diabetes mellitus Alcoholism Uncle Heart disease Social History marital status: number of children: 1 household members: spouse and family lives independently: Yes caregiver/support person: Yes housing: house pets and animals: Yes (dogs, cat, chickens; aware of precautions, managing litter box) education level: college occupational status: employed current occupational exposures/hazards: Yes ([employer]) special kermit needs: No travel history: recent seatbelt use: always helmet use: Yes water heater temp set < 120 deg: Yes working smoke detector in home: Yes fire extinguisher in home: No (Will get one today) carbon monox detector in home: Yes firearms in home: Yes firearms unloaded and locked: Yes do you feel safe at home: Yes Smoking Status: Never smoker second hand exposure: No alcohol intake: former substance use type: marijuana during the past year weight has: increased > 10 lbs well-balanced diet: daily or most days daily servings fruits/ve or more times/day caffeine: Yes (not since learning of , causing anxiety now) Type(s) of exercise: walking, bicycling, weight lifting and other frequency: 3-4 times per week Meds Home Medications and Allergies Home Medications Medication Instructions Recorded Confirmed Type vitamin-ferrous sulfate 1 tab PO 1XD 08/30/23 03/14/24 History 27 mg iron-folic acid 0.8 mg tablet Allergies Allergy/AdvReac Type Severity Reaction Status Date / Time amoxicillin [AMOXICILLIN] Allergy Intermediate Rash Verified 03/14/24 08:01 Review of Systems Review of Systems ROS: Yes All systems reviewed with the patient and are negative except as otherwise documented OB Exam Vital signs Blood Pressure: 155/92 Pulse Rate: 105 HENMT Head: normocephalic and atraumatic Mouth: oral mucosae normal Other: mild facial plethora Resp Effort & Inspection: normal respiratory effort and able to speak in complete sentences Auscultation: clear to auscultation bilaterally Cardio Rate: tachycardic Extremities Lower extremity: Yes edema Laterality: bilateral GI Inspection: normal to inspection Other: gravid, size c/w dates Other: deferred Objective Labs 03/14/24 09:01 03/14/24 09:01 Labs: Laboratory Results - last 24 hr 03/14/24 03/14/24 09:00 09:01 WBC 12.8 H RBC 4.58 Hgb 12.3 Hct 36.7 MCV 80.1 MCH 26.8 MCHC 33.4 RDW 15.7 H Plt Count 255 Neut % (Auto) 75.6 H Lymph % (Auto) 16.1 L [place] % (Auto) 6.9 Eos % (Auto) 0.9 L Baso % (Auto) 0.5 Neut # (Auto) 9700 H Lymph # (Auto) 2100 [place] # (Auto) 900 Eos # (Auto) 100 Baso # (Auto) 100 Sodium 133 L Potassium 4.2 Chloride 106 Carbon Dioxide 21 L BUN 6 L Creatinine 0.47 L Estimated GFR > 60 BUN/Creatinine Ratio 12.8 Glucose 98 Uric Acid 4.2 Calcium 9.9 Total Bilirubin 0.8 AST 14 ALT 13 Alkaline Phosphatase 98 Lactate Dehydrogenase 134 Total Protein 6.8 Albumin 3.7 Globulin 3.1 Albumin/Globulin Ratio 1.2 U Random Total Protein 12 Urine Creatinine 13.67 Protein/Creatinin Ratio 0.87 Assessment and Plan Assessment and Plan Assessment and Plan narrative: 33yo G1 at 34w3d by 7wk US presents for serial BP monitoring, prolonged monitoring in setting of new mild range BP with significant proteinuria, suspected pre-eclampsia without current severe features Mild range BP asymptomatic, noted new mild facial edema with exacerbation of bilateral carpal tunnel sx consistent with global fluid shifts plt, LFT, LDH/uric acid wnl, Pr/Cr 0.87 plan for overnight observation with serial BP monitoring q2h while awake, notify provider with any severe range BP start 24h urine collection repeat PIH labs in AM repeat NST in AM; interval growth scan wnl, EFW 55th% Patient and partner counseled that if BP remains within mild/normal range and labs remain stable, even if 24h urine protein were to confirm suspected diagnosis of pre-eclampsia, in the absence of severe features goal of care at this time will be to optimize maternal/ safety with goal of IOL at 37/0 if no indication for earlier delivery Recommend patient self-swab for GBS prior to departure given higher probability of late delivery. [facility] (Dr. Silveira), will defer to his clinical judgment if patient would benefit from trial of temporizing antihypertensive medication at time of discharge pending overnight clinical course. Time-Based Coding :: [TOTAL MINUTES] spent with patient and on the chart (including review of chart, obtaining history, exam, reviewing outside data, placing orders, documenting exam and treatment plan, and counseling patient) on [DATE].
[2024-03-14 21:09] VITALS: BP 155/92; PULSE 105
[2024-03-15 05:26] LABS: Add Manual Diff / Slide Review NO; Basophils Absolute Auto 100 /uL (0-100); Basophils Percent Auto 0.6 % (0-2); Eosinophils Absolute Auto 200 /uL (0-450); Eosinophils Percent Auto 1.3 % (2-4); Lymphocytes Absolute Auto 2300 /uL (1100-4500); Lymphocytes Percent Auto 16.6 % (25-40); Mean Corpuscular HGB Conc 33.4 % (30-36); Mean Corpuscular Hemoglobin 26.9 PG (26-34); Mean Corpuscular Volume 80.4 fL (80-100); Monocytes Absolute Auto 800 /uL (0-900); Monocytes Percent Auto 5.8 % (3-14); Neutrophils Absolute Auto 10400 /uL (1500-7000); Neutrophils Percent Auto 75.7 % (50-75); Platelet Count 248 X10^3/uL (150-400); Red Blood Cell Count 4.48 X10^6/uL (4.0-5.2); White Blood Cell Count 13.7 X10^3/uL (4.5-11.0)
[2024-03-15 05:36] LABS: Alanine Aminotransferase 13 IU/L (<35); Albumin 3.5 g/dL (3.5-5.0); Albumin Globulin Ratio 1.2 (1.0-2.8); Alkaline Phosphatase 85 U/L (38-126); Aspartate Aminotransferase 14 IU/L (14-36); Bilirubin Total 0.7 mg/dL (0.2-1.3); Blood Urea Nitrogen 6 mg/dL (7-17); Calcium 9.5 mg/dL (8.4-10.2); Carbon Dioxide 20 mmol/L (22-32); Chloride 107 mmol/L (98-107); Estimated Glomerular Filt Rate > 60 mL/min (>60); Glucose 106 mg/dL (70-100); HEMOLYSIS < 15 (0-50); Potassium 4.2 mmol/L (3.4-5.1); Sodium 133 mmol/L (137-145); Total Protein 6.5 g/dL (6.3-8.2)
--- NOTE | 2024-03-15 11:52 | PM.PN.1 ---
Subjective Subjective Date Patient Seen: 03/15/24 Time Patient Seen: 11:52 Objective Labs 03/15/24 05:15 03/15/24 05:15 Labs: Laboratory Results - last 24 hr 03/15/24 05:15 WBC 13.7 H RBC 4.48 Hgb 12.0 Hct 36.0 MCV 80.4 MCH 26.9 MCHC 33.4 RDW 16.0 H Plt Count 248 Neut % (Auto) 75.7 H Lymph % (Auto) 16.6 L [place] % (Auto) 5.8 Eos % (Auto) 1.3 L Baso % (Auto) 0.6 Neut # (Auto) 52468 H Lymph # (Auto) 2300 [place] # (Auto) 800 Eos # (Auto) 200 Baso # (Auto) 100 Sodium 133 L Potassium 4.2 Chloride 107 Carbon Dioxide 20 L BUN 6 L Creatinine 0.50 L Estimated GFR > 60 BUN/Creatinine Ratio 12.0 Glucose 106 H Calcium 9.5 Total Bilirubin 0.7 AST 14 ALT 13 Alkaline Phosphatase 85 Total Protein 6.5 Albumin 3.5 Globulin 3.0 Albumin/Globulin Ratio 1.2 PFSH Medical History Chronic diarrhea Presence of intrauterine contraceptive device (04/27/17) Generalized anxiety disorder Surgical History History of surgery of liver [place] teeth extracted Status post cholecystectomy (~2006) Family History Mother Bipolar disorder Alcoholism Father Hypertension Drug abuse Heart disease Grandmother Hypertension Stroke Grandfather Hypertension Diabetes mellitus Alcoholism Uncle Heart disease Social History marital status: number of children: 1 household members: spouse and family lives independently: Yes caregiver/support person: Yes housing: house pets and animals: Yes (dogs, cat, chickens; aware of precautions, managing litter box) education level: college occupational status: employed current occupational exposures/hazards: Yes ([employer]) special kermit needs: No travel history: recent seatbelt use: always helmet use: Yes water heater temp set < 120 deg: Yes working smoke detector in home: Yes fire extinguisher in home: No (Will get one today) carbon monox detector in home: Yes firearms in home: Yes firearms unloaded and locked: Yes do you feel safe at home: Yes Smoking Status: Never smoker second hand exposure: No alcohol intake: former substance use type: marijuana during the past year weight has: increased > 10 lbs well-balanced diet: daily or most days daily servings fruits/ve or more times/day caffeine: Yes (not since learning of , causing anxiety now) Type(s) of exercise: walking, bicycling, weight lifting and other frequency: 3-4 times per week Assessment & Plan Time-Based Coding :: [TOTAL MINUTES] spent with patient and on the chart (including review of chart, obtaining history, exam, reviewing outside data, placing orders, documenting exam and treatment plan, and counseling patient) on [DATE].
--- NOTE | 2024-03-15 13:58 | PM.OBDS.1 ---
Discharge Providers Provider Date of admission: 03/14/24 08:33 Discharge Date: 03/15/24 Primary care physician: Esther Jara, Discharge provider: Babatunde Silveira MD Summary Hospital Course Date Patient Seen: 03/15/24 Time Patient Seen: 13:58 Diagnoses: Intrauterine gestation, 34+4 weeks Gestational hypertension without severe features versus preeclampsia without severe features Hospital Course: Nette was admitted on the morning of 03/14/2024 after being found to have elevated blood pressures and subsequently a protein to creatinine ratio of 0.87. Laboratory testing including CBC and CMP were negative with normal platelet counts, normal creatinine/BUN, and normal liver function studies. Observation over the ensuing 24 hours shows that her blood pressures have been consistently in the mild hypertension range but she has had no blood pressure readings approaching the severe range. She also denies any headaches, blurred vision, or right upper quadrant pain. Daily nonstress tests have been reassuring. With her blood pressure appearing to be stable and no sign of severe features, the patient will be discharged to home now with close observation planned. She will as much as possible remain at bed rest, and monitor her blood pressure at home 4 times a day. She will notify the office if any persistent blood pressures in the 140/90 range or higher. She also will notify the office with any symptoms of headache, blurred vision, or right upper quadrant pain. In addition will plan to follow the patient twice weekly on the center with NSTs and lab work on each occasion. At this point the decision has been made not to initiate antihypertensive treatment but the patient understands that that may change if her blood pressure becomes consistently higher. She also understands that delivery may be indicated if she develops preeclampsia with severe features. Follow-up will be 03/19/2024 for NST and labs then and Tuesday of each subsequent week with the hope of getting the patient to 37 weeks at which point delivery by induction will likely be necessary if not sooner. Status at Discharge Cognitive/behavioral status at discharge: oriented Functional status at discharge: independent ambulation Overall status at discharge: patient is back to baseline Time Spent with Patient Time attestation: Total time spent providing and/or coordinating discharge services: Time spent: Less than 30 minutes Objective Labs 03/15/24 05:15 03/15/24 05:15 Labs: Laboratory Results - last 24 hr 03/15/24 05:15 WBC 13.7 H RBC 4.48 Hgb 12.0 Hct 36.0 MCV 80.4 MCH 26.9 MCHC 33.4 RDW 16.0 H Plt Count 248 Neut % (Auto) 75.7 H Lymph % (Auto) 16.6 L [place] % (Auto) 5.8 Eos % (Auto) 1.3 L Baso % (Auto) 0.6 Neut # (Auto) 78697 H Lymph # (Auto) 2300 [place] # (Auto) 800 Eos # (Auto) 200 Baso # (Auto) 100 Sodium 133 L Potassium 4.2 Chloride 107 Carbon Dioxide 20 L BUN 6 L Creatinine 0.50 L Estimated GFR > 60 BUN/Creatinine Ratio 12.0 Glucose 106 H Calcium 9.5 Total Bilirubin 0.7 AST 14 ALT 13 Alkaline Phosphatase 85 Total Protein 6.5 Albumin 3.5 Globulin 3.0 Albumin/Globulin Ratio 1.2 Exam HENMT Head: normal to inspection, normocephalic and atraumatic Eyes General: appearance normal, both eyes and all related structures Resp Effort & Inspection: normal respiratory effort and able to speak in complete sentences GI Inspection: normal to inspection Palpation: soft and no hepatosplenomegaly Uterus Location (Fundal Height): 35 Presentation: vertex Estimated Weight (lbs): 5 Neuro General: patient alert, patient awake and patient oriented x3 Cognition: normal cognition DTR's: Rt Patellar: 1+ and Lt Patellar: 1+ Extrem Right lower extremity: normal to inspection and edema Details: pitting and 1+ Left lower extremity: normal to inspection and edema Details: pitting and 1+ Discharge Plan Discharge Plan Patient Disposition: Home Provider Discharge Comment: Please review the written instructions you received when you were discharged from the hospital. Your follow-up appointment will be scheduled for 03/19/2024 on the center for a nonstress test and lab work related to your preeclampsia without severe features. If you have any issues, concerns, or questions however please contact our office at [phone], or via the patient portal. Discharge orders & Medications Prescriptions: Continued vit-ferrous sulfat-FA 27 mg iron- 0.8 mg tablet 1 tab PO 1XD Follow up/Referrals: Fernanda Antunez MD [Physician] - (March 23 @9:30am March 28 as scheduled April 06 @ 2:00pm April 11 @ 1030pm April 20 @ 3:00pm please arrive 15minutes prior to the appointment time. Also Please go to the main hospital registration and register for labs and your NST testing in the Center.) Esther Jara DO [Primary Care Provider] - Discharge Health Status Multidrug resistant organism: No MDRO Diet/Activity/Treatments Diet: Diet as Tolerated Activity: Bedrest as much as possible Other treatments: Check your blood pressure at home 4 times daily and record all results for provider review. Notify the office immediately if your blood pressures are in the 140/90 range. Skin/Wound/Dressing Care Dressing: N/A Visit Report/Discharge Packet Instructions: DI for Pre-eclampsia Discharge Data Primary Care Provider: Esther Jara Attending Provider: Fernanda Antunez Admit Date/Time: 03/14/24 08:33
[2024-03-15 14:44] LABS: Protein (Total) Urine Random 5 mg/dL (0-12)
[2024-03-15 15:41] LABS: Collection Time Urine 24 Hours
[2024-03-15 15:42] LABS: Total Protein 24 Hour Urine 125 mg/day (42-225); Total Volume Urine 2500 mL
== END 2024-03-15 14:31 | disposition home or self-care (01) ==
PROVIDERS: Admitting Provider Obstetrics & Gynecology; PCP Family Medicine; Referring Provider Obstetrics & Gynecology; Visit Provider Obstetrics & Gynecology
DX: O13.3 Gestational [pregnancy-induced] hypertension without significant proteinuria, third trimester (principal); Z3A.34 34 weeks gestation of pregnancy
CPT/HCPCS: 36415; 59025; 59050; 76815; 76819; 80053; 82570; 83615; 84156; 84550; 85025; 87491; 87591; 99222; 99238; G0378; G0379

== ENCOUNTER 2024-03-19 07:49 | Observation (INO) | payer OTHER, SELFPAY ==
[2024-03-19 08:22] LABS: Add Manual Diff / Slide Review NO; Basophils Absolute Auto 0 /uL (0-100); Basophils Percent Auto 0.3 % (0-2); Eosinophils Absolute Auto 100 /uL (0-450); Eosinophils Percent Auto 0.7 % (2-4); Hematocrit 37.9 % (36-46); Hemoglobin 12.7 g/dL (12.0-16.0); Lymphocytes Absolute Auto 2000 /uL (1100-4500); Lymphocytes Percent Auto 14.1 % (25-40); Mean Corpuscular HGB Conc 33.6 % (30-36); Mean Corpuscular Hemoglobin 26.8 PG (26-34); Mean Corpuscular Volume 79.9 fL (80-100); Monocytes Absolute Auto 800 /uL (0-900); Monocytes Percent Auto 5.4 % (3-14); Neutrophils Absolute Auto 11000 /uL (1500-7000); Neutrophils Percent Auto 79.5 % (50-75); Platelet Count 251 X10^3/uL (150-400); Red Blood Cell Count 4.74 X10^6/uL (4.0-5.2); Red Cell Distribution Width 15.7 % (11.6-14.8); White Blood Cell Count 13.9 X10^3/uL (4.5-11.0)
[2024-03-19 08:36] LABS: Alanine Aminotransferase 15 IU/L (<35); Albumin 3.9 g/dL (3.5-5.0); Albumin Globulin Ratio 1.2 (1.0-2.8); Alkaline Phosphatase 102 U/L (38-126); Aspartate Aminotransferase 14 IU/L (14-36); BUN Creatinine Ratio 18.6 (6-22); Bilirubin Total 0.8 mg/dL (0.2-1.3); Blood Urea Nitrogen 8 mg/dL (7-17); Calcium 9.7 mg/dL (8.4-10.2); Carbon Dioxide 19 mmol/L (22-32); Chloride 105 mmol/L (98-107); Estimated Glomerular Filt Rate > 60 mL/min (>60); Globulin 3.2 g/dL (1.7-4.1); Glucose 125 mg/dL (70-100); HEMOLYSIS < 15 (0-50); Potassium 4.1 mmol/L (3.4-5.1); Sodium 134 mmol/L (137-145); Total Protein 7.1 g/dL (6.3-8.2)
[2024-03-19 08:44] LABS: Creatinine Urine Random 141.28 mg/dL
[2024-03-19 08:45] LABS: Protein (Total) Urine Random < 5 mg/dL (0-12); Protein Creatinine Ratio Urine 0.03 GRAM/24H
--- NOTE | 2024-03-19 10:10 | PM.OBTRLD ---
Visit Information Visit Information Date of evaluation: 03/19/24 Primary OB Provider: Fernanda Antunez On-call OB Provider: Fernanda Antunez Reason for Evaluation: Yes non-stress test Comments/Additional reasons for admission: new diagnosis GHTN 03/14/24 Patient reports persistent intermittent mild range BP at home, has been compliant with decreased activity/modified bed rest as instructed. Denies DE PAZ, vision changes, notes interval decrease in peripheral edema PFSH Medical History Chronic diarrhea Presence of intrauterine contraceptive device (04/27/17) Generalized anxiety disorder Surgical History History of surgery of liver [place] teeth extracted Status post cholecystectomy (~2006) Family History Mother Bipolar disorder Alcoholism Father Hypertension Drug abuse Heart disease Grandmother Hypertension Stroke Grandfather Hypertension Diabetes mellitus Alcoholism Uncle Heart disease Social History marital status: number of children: 1 household members: spouse and family lives independently: Yes caregiver/support person: Yes housing: house pets and animals: Yes (dogs, cat, chickens; aware of precautions, managing litter box) education level: college occupational status: employed current occupational exposures/hazards: Yes ([employer]) special kermit needs: No travel history: recent seatbelt use: always helmet use: Yes water heater temp set < 120 deg: Yes working smoke detector in home: Yes fire extinguisher in home: No (Will get one today) carbon monox detector in home: Yes firearms in home: Yes firearms unloaded and locked: Yes do you feel safe at home: Yes Smoking Status: Never smoker second hand exposure: No alcohol intake: former substance use type: marijuana during the past year weight has: increased > 10 lbs well-balanced diet: daily or most days daily servings fruits/ve or more times/day caffeine: Yes (not since learning of , causing anxiety now) Type(s) of exercise: walking, bicycling, weight lifting and other frequency: 3-4 times per week Review of Systems Review of Systems ROS: Yes All systems reviewed with the patient and are negative except as otherwise documented Exam Vital Signs (past 8 hours): labile BP, max 155/102 on first assessment, then as low as 130/70s with serial monitoring Const General: cooperative, comfortable and well developed Nutritional Appearance: obese and edematous (decreased plethora from prior exam ) Orientation: alert, awake and oriented x3 Limitations: mental status not altered HENMT Head: normal to inspection Face and sinus: normal facial exam (subjective decrease in prior plethora ) Resp Effort & Inspection: normal respiratory effort Cardio Pulses: normal peripheral pulses GI Inspection: normal to inspection Other: deferred Skin General: no rashes or lesions noted Neuro General: patient alert, patient awake and patient oriented x3 Extrem General: normal to inspection and pedal edema (+1 bilaterally ) Psych Mental Status: mental status grossly normal Judgment: judgment good Objective Labs 03/19/24 08:10 03/19/24 08:10 Labs: Laboratory Results - last 24 hr 03/19/24 03/19/24 08:10 08:13 WBC 13.9 H RBC 4.74 Hgb 12.7 Hct 37.9 MCV 79.9 L MCH 26.8 MCHC 33.6 RDW 15.7 H Plt Count 251 Neut % (Auto) 79.5 H Lymph % (Auto) 14.1 L [place] % (Auto) 5.4 Eos % (Auto) 0.7 L Baso % (Auto) 0.3 Neut # (Auto) 97898 H Lymph # (Auto) 2000 [place] # (Auto) 800 Eos # (Auto) 100 Baso # (Auto) 0 Sodium 134 L Potassium 4.1 Chloride 105 Carbon Dioxide 19 L BUN 8 Creatinine 0.43 L Estimated GFR > 60 BUN/Creatinine Ratio 18.6 Glucose 125 H Calcium 9.7 Total Bilirubin 0.8 AST 14 ALT 15 Alkaline Phosphatase 102 Total Protein 7.1 Albumin 3.9 Globulin 3.2 Albumin/Globulin Ratio 1.2 U Random Total Protein < 5 Urine Creatinine 141.28 Protein/Creatinin Ratio 0.03 Evaluation Evaluation Baseline heart rate: 135 Variability: Average (6-10) monitor accelerations: Present Monitor Decelerations: Absent Uterine Contraction Intensity: Mild Category of Tracing: Reactive Status: Category l Diagnosis, Plan/Disposition Plan/Disposition Plan: 33yo G1 at 35w1d presents for scheduled NST and interval PIH labs, new diagnosis GHTN without interval exacerbation Strict precautions reviewed Continue plan of care as scheduled pt to notify provider with any changes OB Disposition: home
== END 2024-03-19 10:03 | disposition home or self-care (01) ==
PROVIDERS: Admitting Provider Obstetrics & Gynecology; PCP Family Medicine; Referring Provider Obstetrics & Gynecology; Visit Provider Obstetrics & Gynecology
DX: O24.419 Gestational diabetes mellitus in pregnancy, unspecified control (principal); Z3A.35 35 weeks gestation of pregnancy
CPT/HCPCS: 59025; 59050; 80053; 82570; 84156; 85025; G0378; G0379

== ENCOUNTER 2024-03-23 10:00 | Outpatient (CLI) | payer OTHER, SELFPAY ==
[2024-03-23 10:59] LABS: Add Manual Diff / Slide Review NO; Basophils Absolute Auto 100 /uL (0-100); Basophils Percent Auto 0.4 % (0-2); Eosinophils Absolute Auto 100 /uL (0-450); Eosinophils Percent Auto 0.8 % (2-4); Hematocrit 36.1 % (36-46); Hemoglobin 11.9 g/dL (12.0-16.0); Lymphocytes Absolute Auto 2100 /uL (1100-4500); Lymphocytes Percent Auto 16.7 % (25-40); Mean Corpuscular Hemoglobin 26.7 PG (26-34); Monocytes Absolute Auto 900 /uL (0-900); Neutrophils Absolute Auto 9400 /uL (1500-7000); Neutrophils Percent Auto 75.1 % (50-75); Platelet Count 248 X10^3/uL (150-400); Red Blood Cell Count 4.45 X10^6/uL (4.0-5.2); White Blood Cell Count 12.6 X10^3/uL (4.5-11.0)
[2024-03-23 11:11] LABS: Alanine Aminotransferase 13 IU/L (<35); Albumin 3.7 g/dL (3.5-5.0); Albumin Globulin Ratio 1.2 (1.0-2.8); Alkaline Phosphatase 102 U/L (38-126); Aspartate Aminotransferase 14 IU/L (14-36); BUN Creatinine Ratio 13.6 (6-22); Bilirubin Total 0.8 mg/dL (0.2-1.3); Blood Urea Nitrogen 6 mg/dL (7-17); Calcium 9.4 mg/dL (8.4-10.2); Carbon Dioxide 21 mmol/L (22-32); Chloride 105 mmol/L (98-107); Estimated Glomerular Filt Rate > 60 mL/min (>60); Globulin 3.1 g/dL (1.7-4.1); Glucose 95 mg/dL (70-100); HEMOLYSIS < 15 (0-50); Potassium 4.2 mmol/L (3.4-5.1); Sodium 133 mmol/L (137-145); Total Protein 6.8 g/dL (6.3-8.2)
[2024-03-23 11:28] LABS: Protein (Total) Urine Random 7 mg/dL (0-12); Protein Creatinine Ratio Urine 0.17 GRAM/24H
== END 2024-03-23 11:25 | disposition home or self-care (01) ==
LOC: LABOR 10:31 → OB 03-26 11:16
PROVIDERS: PCP Family Medicine; Referring Provider Obstetrics & Gynecology; Visit Provider Obstetrics & Gynecology
DX: O13.3 Gestational [pregnancy-induced] hypertension without significant proteinuria, third trimester (principal); Z3A.35 35 weeks gestation of pregnancy
CPT/HCPCS: 59025; 59050; 80053; 82570; 84156; 85025; G0378; G0379

== ENCOUNTER 2024-03-26 07:57 | Outpatient (CLI) | payer OTHER, SELFPAY ==
[2024-03-26 08:31] LABS: Add Manual Diff / Slide Review NO; Basophils Absolute Auto 100 /uL (0-100); Basophils Percent Auto 0.4 % (0-2); Eosinophils Absolute Auto 100 /uL (0-450); Eosinophils Percent Auto 0.8 % (2-4); Hematocrit 38.3 % (36-46); Hemoglobin 12.5 g/dL (12.0-16.0); Lymphocytes Absolute Auto 2000 /uL (1100-4500); Lymphocytes Percent Auto 13.9 % (25-40); Mean Corpuscular HGB Conc 32.6 % (30-36); Mean Corpuscular Hemoglobin 26.3 PG (26-34); Mean Corpuscular Volume 80.7 fL (80-100); Monocytes Absolute Auto 600 /uL (0-900); Monocytes Percent Auto 3.8 % (3-14); Neutrophils Absolute Auto 11700 /uL (1500-7000); Neutrophils Percent Auto 81.1 % (50-75); Platelet Count 257 X10^3/uL (150-400); Red Blood Cell Count 4.75 X10^6/uL (4.0-5.2); Red Cell Distribution Width 16.2 % (11.6-14.8); White Blood Cell Count 14.4 X10^3/uL (4.5-11.0)
[2024-03-26 08:47] LABS: Alanine Aminotransferase 39 IU/L (<35); Albumin 3.7 g/dL (3.5-5.0); Albumin Globulin Ratio 1.2 (1.0-2.8); Alkaline Phosphatase 106 U/L (38-126); Aspartate Aminotransferase 16 IU/L (14-36); BUN Creatinine Ratio 15.6 (6-22); Blood Urea Nitrogen 7 mg/dL (7-17); Calcium 9.6 mg/dL (8.4-10.2); Carbon Dioxide 16 mmol/L (22-32); Chloride 105 mmol/L (98-107); Estimated Glomerular Filt Rate > 60 mL/min (>60); Globulin 3.2 g/dL (1.7-4.1); Glucose 140 mg/dL (70-100); HEMOLYSIS < 15 (0-50); Potassium 3.8 mmol/L (3.4-5.1); Sodium 133 mmol/L (137-145); Total Protein 6.9 g/dL (6.3-8.2); Uric Acid 4.9 mg/dL (2.5-6.2)
[2024-03-26 08:59] LABS: Creatinine Urine Random 198.42 mg/dL; Protein (Total) Urine Random < 5 mg/dL (0-12); Protein Creatinine Ratio Urine 0.02 GRAM/24H
--- NOTE | 2024-03-26 09:48 | PM.OBTRLD ---
Visit Information Visit Information Date of evaluation: 03/26/24 Primary OB Provider: Fernanda Antunez On-call OB Provider: Lucy Mcmahan Reason for Evaluation: Yes non-stress test non-stress test reason: hypertension/pre-eclampsia Comments/Additional reasons for admission: 34yo G1 at 36w1d with known GHTN without preE presents for scheduled NST. Denies DE PAZ, vision changes, RUQ pain. BP at home continues to be labile without sustained severe range BP. Vital Signs Vital Signs: 148/110 125/74 137/78 [facility] Medical History (Updated 03/26/24 @ 09:53 by Fernanda Antunez MD) Gestational hypertension Chronic diarrhea Presence of intrauterine contraceptive device (04/27/17) Generalized anxiety disorder Surgical History History of surgery of liver [place] teeth extracted Status post cholecystectomy (~2006) Family History Mother Bipolar disorder Alcoholism Father Hypertension Drug abuse Heart disease Grandmother Hypertension Stroke Grandfather Hypertension Diabetes mellitus Alcoholism Uncle Heart disease Social History marital status: number of children: 1 household members: spouse and family lives independently: Yes caregiver/support person: Yes housing: house pets and animals: Yes (dogs, cat, chickens; aware of precautions, managing litter box) education level: college occupational status: employed current occupational exposures/hazards: Yes ([employer]) special kermit needs: No travel history: recent seatbelt use: always helmet use: Yes water heater temp set < 120 deg: Yes working smoke detector in home: Yes fire extinguisher in home: No (Will get one today) carbon monox detector in home: Yes firearms in home: Yes firearms unloaded and locked: Yes do you feel safe at home: Yes Smoking Status: Never smoker second hand exposure: No alcohol intake: former substance use type: marijuana during the past year weight has: increased > 10 lbs well-balanced diet: daily or most days daily servings fruits/ve or more times/day caffeine: Yes (not since learning of , causing anxiety now) Type(s) of exercise: walking, bicycling, weight lifting and other frequency: 3-4 times per week Review of Systems Review of Systems ROS: Yes All systems reviewed with the patient and are negative except as otherwise documented Exam Const General: cooperative Nutritional Appearance: overweight Orientation: alert, awake and oriented x3 Limitations: mental status not altered HENMT Head: normal to inspection Eyes General: appearance normal, both eyes and all related structures Neck Neck: normal visual inspection Resp Effort & Inspection: normal respiratory effort and able to speak in complete sentences Cardio Pulses: normal peripheral pulses GI Palpation: soft Other: deferred Skin General: no rashes or lesions noted Neuro General: patient alert, patient awake and patient oriented x3 Extrem General: normal to inspection Other: +1 pedal edema Psych Mental Status: mental status grossly normal Judgment: judgment good Objective Labs 03/26/24 08:20 03/26/24 08:20 Labs: Laboratory Results - last 24 hr 03/26/24 03/26/24 08:20 08:25 WBC 14.4 H RBC 4.75 Hgb 12.5 Hct 38.3 MCV 80.7 MCH 26.3 MCHC 32.6 RDW 16.2 H Plt Count 257 Neut % (Auto) 81.1 H Lymph % (Auto) 13.9 L [place] % (Auto) 3.8 Eos % (Auto) 0.8 L Baso % (Auto) 0.4 Neut # (Auto) 69374 H Lymph # (Auto) 2000 [place] # (Auto) 600 Eos # (Auto) 100 Baso # (Auto) 100 Sodium 133 L Potassium 3.8 Chloride 105 Carbon Dioxide 16 L BUN 7 Creatinine 0.45 L Estimated GFR > 60 BUN/Creatinine Ratio 15.6 Glucose 140 H Uric Acid 4.9 Calcium 9.6 Total Bilirubin 1.0 AST 16 ALT 39 H Alkaline Phosphatase 106 Total Protein 6.9 Albumin 3.7 Globulin 3.2 Albumin/Globulin Ratio 1.2 U Random Total Protein < 5 Urine Creatinine 198.42 Protein/Creatinin Ratio 0.02 Evaluation Evaluation Baseline heart rate: 140 Variability: Moderate (11-25) monitor accelerations: Present Monitor Decelerations: Absent Category of Tracing: Reactive Status: Category l Diagnosis, Plan/Disposition Final Diagnosis (1) Gestational hypertension: Status: Acute Plan/Disposition Plan: labs stable, mild increase in ALT (39) but <2x normal, remainder wnl strict interval precautions GBS prior to leaving L&D today scheduled for IOL on Tuesday, 04/01 at 37w0d OB Disposition: home
[2024-03-27 09:12] LABS: Strep Grp B PCR NEG for Grp B Strep
== END 2024-03-26 09:52 | disposition home or self-care (01) ==
LOC: LABOR 08:54 → OB 03-29 10:48
PROVIDERS: PCP Family Medicine; Referring Provider Obstetrics & Gynecology; Visit Provider Obstetrics & Gynecology
DX: O13.3 Gestational [pregnancy-induced] hypertension without significant proteinuria, third trimester (principal); Z3A.36 36 weeks gestation of pregnancy
CPT/HCPCS: 36415; 59025; 80053; 82570; 84156; 84550; 85025; 87653; G0378; G0379

== ENCOUNTER 2024-03-30 07:55 | Outpatient (CLI) | payer OTHER, SELFPAY ==
[2024-03-30 08:29] LABS: Add Manual Diff / Slide Review NO; Basophils Absolute Auto 100 /uL (0-100); Basophils Percent Auto 0.4 % (0-2); Eosinophils Absolute Auto 100 /uL (0-450); Eosinophils Percent Auto 0.7 % (2-4); Hematocrit 36.7 % (36-46); Hemoglobin 12.3 g/dL (12.0-16.0); Lymphocytes Absolute Auto 2100 /uL (1100-4500); Lymphocytes Percent Auto 15.6 % (25-40); Mean Corpuscular HGB Conc 33.5 % (30-36); Mean Corpuscular Hemoglobin 26.7 PG (26-34); Mean Corpuscular Volume 79.6 fL (80-100); Monocytes Absolute Auto 700 /uL (0-900); Monocytes Percent Auto 5.2 % (3-14); Neutrophils Absolute Auto 10300 /uL (1500-7000); Neutrophils Percent Auto 78.1 % (50-75); Platelet Count 264 X10^3/uL (150-400); Red Blood Cell Count 4.62 X10^6/uL (4.0-5.2); Red Cell Distribution Width 15.9 % (11.6-14.8); White Blood Cell Count 13.2 X10^3/uL (4.5-11.0)
[2024-03-30 08:42] LABS: Alanine Aminotransferase 19 IU/L (<35); Albumin 3.7 g/dL (3.5-5.0); Albumin Globulin Ratio 1.2 (1.0-2.8); Alkaline Phosphatase 107 U/L (38-126); Aspartate Aminotransferase 21 IU/L (14-36); BUN Creatinine Ratio 15.6 (6-22); Bilirubin Total 0.9 mg/dL (0.2-1.3); Blood Urea Nitrogen 7 mg/dL (7-17); Calcium 9.2 mg/dL (8.4-10.2); Carbon Dioxide 18 mmol/L (22-32); Chloride 106 mmol/L (98-107); Estimated Glomerular Filt Rate > 60 mL/min (>60); Globulin 3.2 g/dL (1.7-4.1); Glucose 112 mg/dL (70-100); HEMOLYSIS < 15 (0-50); Potassium 4.1 mmol/L (3.4-5.1); Sodium 133 mmol/L (137-145); Total Protein 6.9 g/dL (6.3-8.2); Uric Acid 4.9 mg/dL (2.5-6.2)
--- NOTE | 2024-03-30 08:52 | PM.OBTRLD ---
Visit Information Visit Information Date of evaluation: 03/30/24 Primary OB Provider: Fernanda Antunez On-call OB Provider: Lucy Mcmahan Reason for Evaluation: Yes non-stress test Comments/Additional reasons for admission: GHTN, scheduled IOL 04/01 Vital Signs Vital Signs: maternal VS reviewed in OBIX, non-sustained mild range (140/90) in addition to single isolated but non-sustained severe range (161/96) [facility] Medical History (Updated 03/26/24 @ 09:53 by Fernanda Antunez MD) Gestational hypertension Chronic diarrhea Presence of intrauterine contraceptive device (04/27/17) Generalized anxiety disorder Surgical History History of surgery of liver [place] teeth extracted Status post cholecystectomy (~2006) Family History Mother Bipolar disorder Alcoholism Father Hypertension Drug abuse Heart disease Grandmother Hypertension Stroke Grandfather Hypertension Diabetes mellitus Alcoholism Uncle Heart disease Social History marital status: number of children: 1 household members: spouse and family lives independently: Yes caregiver/support person: Yes housing: house pets and animals: Yes (dogs, cat, chickens; aware of precautions, managing litter box) education level: college occupational status: employed current occupational exposures/hazards: Yes ([employer]) special kermit needs: No travel history: recent seatbelt use: always helmet use: Yes water heater temp set < 120 deg: Yes working smoke detector in home: Yes fire extinguisher in home: No (Will get one today) carbon monox detector in home: Yes firearms in home: Yes firearms unloaded and locked: Yes do you feel safe at home: Yes Smoking Status: Never smoker second hand exposure: No alcohol intake: former substance use type: marijuana during the past year weight has: increased > 10 lbs well-balanced diet: daily or most days daily servings fruits/ve or more times/day caffeine: Yes (not since learning of , causing anxiety now) Type(s) of exercise: walking, bicycling, weight lifting and other frequency: 3-4 times per week Review of Systems Review of Systems ROS: Yes All systems reviewed with the patient and are negative except as otherwise documented Objective Labs 03/30/24 08:20 03/30/24 08:20 Labs: Laboratory Results - last 24 hr 03/30/24 08:20 WBC 13.2 H RBC 4.62 Hgb 12.3 Hct 36.7 MCV 79.6 L MCH 26.7 MCHC 33.5 RDW 15.9 H Plt Count 264 Neut % (Auto) 78.1 H Lymph % (Auto) 15.[address] [place] % (Auto) 5.2 Eos % (Auto) 0.7 L Baso % (Auto) 0.4 Neut # (Auto) 71321 H Lymph # (Auto) 2100 [place] # (Auto) 700 Eos # (Auto) 100 Baso # (Auto) 100 Sodium 133 L Potassium 4.1 Chloride 106 Carbon Dioxide 18 L BUN 7 Creatinine 0.45 L Estimated GFR > 60 BUN/Creatinine Ratio 15.6 Glucose 112 H Uric Acid 4.9 Calcium 9.2 Total Bilirubin 0.9 AST 21 ALT 19 Alkaline Phosphatase 107 Total Protein 6.9 Albumin 3.7 Globulin 3.2 Albumin/Globulin Ratio 1.2 Evaluation Evaluation Baseline heart rate: 145 Variability: Moderate (11-25) monitor accelerations: Present Monitor Decelerations: Absent Status: Category l Diagnosis, Plan/Disposition Plan/Disposition Plan: strict preE/FM precautions return as scheduled 04/01, IOL OB Disposition: home
== END 2024-03-30 09:21 | disposition home or self-care (01) ==
LOC: OB 04-02 06:12
PROVIDERS: PCP Family Medicine; Referring Provider Obstetrics & Gynecology; Visit Provider Obstetrics & Gynecology
DX: O13.3 Gestational [pregnancy-induced] hypertension without significant proteinuria, third trimester (principal); O36.8130 Decreased fetal movements, third trimester, not applicable or unspecified; Z3A.36 36 weeks gestation of pregnancy
CPT/HCPCS: 36415; 59025; 80053; 84550; 85025; G0378; G0379

== ENCOUNTER 2024-04-01 19:33 | Inpatient (IN) | payer OTHER, SELFPAY ==
--- NOTE | 2024-04-01 20:23 | PM.OBHP.1 ---
OB HPI Date/Time Date of admission: 04/01/24 Date Patient Seen: 04/01/24 Time Patient Seen: 20:23 History of Present Condition Chief complaint: induction for GHTN : 1 Estimated Date of Delivery: 04/22/24 Estimated Gestational Age (weeks): 37w0d Narrative: Nette Hernandez is a 34 year old female G1 at 37w0d by 8wk US presents for IOL at early term in setting of GHTN. course notable for PIH, mild range BP with intermittent proteinuria but otherwise no s/sx of pre-eclampsia with or without severe features on serial lab/ testing since 32wga; h/o maternal benign hepatic tumor s/p resection (followed by GI, no complication); excessive maternal weight gain (>50#). Pt denies VB, LOF, dysuria, ctx. ++FM. Moderate anxiety in anticipation of IOL, plan of care reviewed at length on admission. Indications Indication for induction OB: gestational HTN/pre-eclampsia History of Present care: good care Dating criteria: based on 1st trimester US only Ultrasounds: normal 1st trimester US and normal mid trimester US Obstetrical complications: gestational hypertension and other (excessive maternal weight gain ) Medical complications: other (h/o maternal mood disorder) Preadmission Labs Blood type: A (+) positive -: Antibody screen: negative, HBsAG: negative, HIV: negative, HSV 1: unknown, HSV 2: unknown and RPR/VDLR: negative -: Chlamydia screen: not detected and Gonorrhea screen: not detected -: Rubella: immune and Varicella: immune HCAB: negative PAP: Normal Cell-free DNA: low-risk XY 1 hr GTT: 94 Evaluation Evaluation Baseline heart rate: 145 Variability: Moderate (11-25) monitor accelerations: Present Monitor Decelerations: Absent Category of Tracing: Reactive Status: Category l Dilation (cm): 0 Effacement (%): 50 Dilation: Closed Effacement: 40-50% station: -3 Position of cervix: mid Consistency: soft Blount score: 4 PFSH Medical History (Updated 03/26/24 @ 09:53 by Fernanda Antunez MD) Gestational hypertension Chronic diarrhea Presence of intrauterine contraceptive device (04/27/17) Generalized anxiety disorder Surgical History History of surgery of liver [place] teeth extracted Status post cholecystectomy (~2006) Family History Mother Bipolar disorder Alcoholism Father Hypertension Drug abuse Heart disease Grandmother Hypertension Stroke Grandfather Hypertension Diabetes mellitus Alcoholism Uncle Heart disease Social History marital status: number of children: 1 household members: spouse and family lives independently: Yes caregiver/support person: Yes housing: house pets and animals: Yes (dogs, cat, chickens; aware of precautions, managing litter box) education level: college occupational status: employed current occupational exposures/hazards: Yes ([employer]) special kermit needs: No travel history: recent seatbelt use: always helmet use: Yes water heater temp set < 120 deg: Yes working smoke detector in home: Yes fire extinguisher in home: No (Will get one today) carbon monox detector in home: Yes firearms in home: Yes firearms unloaded and locked: Yes do you feel safe at home: Yes Smoking Status: Never smoker second hand exposure: No alcohol intake: former substance use type: marijuana during the past year weight has: increased > 10 lbs well-balanced diet: daily or most days daily servings fruits/ve or more times/day caffeine: Yes (not since learning of , causing anxiety now) Type(s) of exercise: walking, bicycling, weight lifting and other frequency: 3-4 times per week Meds Home Medications and Allergies Home Medications Medication Instructions Recorded Confirmed Type vitamin-ferrous sulfate 1 tab PO 1XD 08/30/23 03/23/24 History 27 mg iron-folic acid 0.8 mg tablet Allergies Allergy/AdvReac Type Severity Reaction Status Date / Time amoxicillin [AMOXICILLIN] Allergy Intermediate Rash Verified 03/23/24 09:37 Review of Systems Review of Systems ROS: Yes All systems reviewed with the patient and are negative except as otherwise documented OB Exam Vital signs Blood Pressure: 132/87 Pulse Rate: 84 Respiratory Rate: 18 HENMT Head: normal to inspection Eyes General: appearance normal, both eyes and all related structures Resp Effort & Inspection: normal respiratory effort and able to speak in complete sentences Cardio Rate: regular rate Extremities Lower extremity: Yes normal to inspection and edema (+1) Laterality: bilateral GI Inspection: normal to inspection Palpation: Yes soft and Yes other (noted RUQ scar) External Female Exam: Yes normal external appearance Presentation: vertex Assessment and Plan Assessment and Plan Assessment and Plan narrative: 34yo G1 at 37w0d by 8wk US presents for scheduled IOL at early term in setting of GHTN IOL for GHTN T&S, CBC on admission; add PIH labs low threshold to start low-dose nifedipine pending clinical course, no prior antihypertensive therapy PNL: as per admission documentation, GBS neg, rubella immune, remainder wnl Plan for cervedil o/n cervical ripening, reassessment in AM with anticipated placement of miller bulb vs initiation of IV pitocin at that time Patient is consented for vaginal, vaginal operative and delivery as well as transfusion of blood products as medically indicated Time-Based Coding :: [TOTAL MINUTES] spent with patient and on the chart (including review of chart, obtaining history, exam, reviewing outside data, placing orders, documenting exam and treatment plan, and counseling patient) on [DATE].
[2024-04-01 20:34] VITALS: BP 132/87; PULSE 84; RESP 18
[2024-04-01 20:57] LABS: Add Manual Diff / Slide Review NO; Basophils Absolute Auto 0 /uL (0-100); Basophils Percent Auto 0.2 % (0-2); Eosinophils Absolute Auto 100 /uL (0-450); Eosinophils Percent Auto 0.8 % (2-4); Hematocrit 36.4 % (36-46); Lymphocytes Absolute Auto 2400 /uL (1100-4500); Lymphocytes Percent Auto 17.6 % (25-40); Mean Corpuscular HGB Conc 32.9 % (30-36); Mean Corpuscular Hemoglobin 26.2 PG (26-34); Mean Corpuscular Volume 79.9 fL (80-100); Monocytes Absolute Auto 1100 /uL (0-900); Monocytes Percent Auto 8.1 % (3-14); Neutrophils Absolute Auto 10100 /uL (1500-7000); Neutrophils Percent Auto 73.3 % (50-75); Platelet Count 246 X10^3/uL (150-400); Red Blood Cell Count 4.56 X10^6/uL (4.0-5.2); Red Cell Distribution Width 16.1 % (11.6-14.8); White Blood Cell Count 13.8 X10^3/uL (4.5-11.0)
[2024-04-01 21:16] LABS: Alanine Aminotransferase 15 IU/L (<35); Albumin 3.7 g/dL (3.5-5.0); Albumin Globulin Ratio 1.2 (1.0-2.8); Alkaline Phosphatase 108 U/L (38-126); Aspartate Aminotransferase 18 IU/L (14-36); BUN Creatinine Ratio 19.1 (6-22); Bilirubin Total 0.8 mg/dL (0.2-1.3); Blood Urea Nitrogen 9 mg/dL (7-17); Calcium 9.4 mg/dL (8.4-10.2); Carbon Dioxide 20 mmol/L (22-32); Chloride 105 mmol/L (98-107); Estimated Glomerular Filt Rate > 60 mL/min (>60); Glucose 102 mg/dL (70-100); HEMOLYSIS < 15 (0-50); Potassium 3.6 mmol/L (3.4-5.1); Sodium 134 mmol/L (137-145); Total Protein 6.7 g/dL (6.3-8.2)
[2024-04-01] MEDS: DINOPROSTONE VAG (CERVIDIL) 10 MG VAG (21:45)
--- NOTE | 2024-04-02 08:29 | PM.OBPNLAB ---
Date/Time Date Patient Seen: 04/02/24 Time Patient Seen: 07:15 Pain Control Pain control: tolerating well Comments: ambulating, states moderate cramping but tolerable. +FM, denies VB, LOF, dysuria. NAEON per RN, BP remain labile without persistent mild or severe range readings Pelvic Exam Effacement (%): 50 station: -3 Contractions Contractions on admission: none Monitor mode: External Contraction intensity: Mild Status status: Category l Heart Rate Baseline: 145 Monitor Accelerations: Present Monitor Decelerations: Absent Monitor Variability: Moderate Assessment and Plan Assessment: induction ongoing Plan: continuous present management Comments: 34yo G1 at 37w1d by 8wk US, HD2 of IOL in setting of GHTN at term, s/p cervical ripening overnight IOL cervidil placed at 2145, will plan for removal later this AM, anticipate further augmentation with placement of miller balloon vs IV pitocin at that time Cat 1 tracing maternal VSS, no persistent mild range BP at this time, continue to monitor with low-threshold to start PO nifedipine anticipate
[2024-04-02] MEDS: miSOPROStoL 200 MCG TABLET 25 MCG SL (11:16)
--- NOTE | 2024-04-02 15:38 | PM.OBPNLAB ---
Date/Time Date Patient Seen: 04/02/24 Time Patient Seen: 15:38 Pain Control Pain control: tolerating well Comments: amenable to placement of miller bulb for mechanical cervical ripening Pelvic Exam Dilation (cm): 1 Effacement (%): 50 station: -3 Amniotic membrane status: Intact Contractions Monitor mode: External Contraction frequency (min): 7 Contraction pattern: Irregular Contraction intensity: Mild Status status: Category l Heart Rate Baseline: 145 Monitor Accelerations: Present Monitor Decelerations: Absent Monitor Variability: Moderate Assessment and Plan Assessment: induction ongoing Plan: continuous present management Comments: Miller bulb placed for mechanical cervical ripening at 1530, plan to start additional IV pitocin augmentation in 4h cat 1 tracing, maternal VSS/afebrile without BP exacerbation anticipate
[2024-04-02] MEDS: LACTATED RINGERS 1,000 ML 100 ML IV (21:38)
[2024-04-02] MEDS: OXYTOCIN PREMIX 30 UNIT/500 ML PLAST..BAG IV (21:38)
--- NOTE | 2024-04-03 07:29 | P.PNOB_ITS ---
Date/Time Date Patient Seen: 04/03/24 Time Patient Seen: 07:29 Pain Control Pain control: tolerating well Comments: YEHUDA per RN, brief period of cat 2 tracing that resolved with routine intrauterine resuscitation (position changes) Miller bulb out at 2200, IV pitocin to max of 14 currently at 8 at time of AM rounds pt endorses +FM, mild to moderate cramping current cat 1 tracing Pelvic Exam Dilation (cm): 4 Effacement (%): 70 station: -3 Amniotic membrane status: Intact Contractions Contractions on admission: irregular Monitor mode: External Pitocin rate (mU/min): 8 Contraction frequency (min): 7 Contraction pattern: Irregular Contraction intensity: Mild Status status: Category l Heart Rate Baseline: 145 Monitor Accelerations: Present Monitor Decelerations: Absent Monitor Variability: Moderate Assessment and Plan Assessment: induction ongoing Plan: continuous present management Comments: 34yo G1 at 37w2d, HD3/IOLd2 in setting of GHTN without pre-eclampsia IOL s/p miller, adequate cervical ripening continue IV pitocin, titrate to pattern --> plan for interval SVE 4-6h post- pattern cont CEFM/toco, maternal VSS/afebrile without BP exacerbation anticipate
[2024-04-03] MEDS: LACTATED RINGERS 1,000 ML 100 ML IV ×2 (15:03→16:00)
[2024-04-03] MEDS: ONDANSETRON 4 MG/2 ML INJ IV ×2 (15:11→22:43)
--- NOTE | 2024-04-03 16:11 | PM.AN.REGBLK ---
Regional Block Pre-procedure Procedure: Continuous Lumbar Epidural for L&D Attending OB provider: Fernanda Antunez PMH/ROS narrative: with PMH of gestational HTN (unmedicated), requesting a lumbar epidural for labor pain. 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 Exam narrative: See pre-anesthesia evaluation. ASA Class: II Labs: Hct 36.4 % (36-46) 04/01/24 20:36 Plt Count 246 X10^3/uL (150-400) 04/01/24 20:36 Medications: Current Medications Generic Name Dose Route Start Last Admin Trade Name Freq PRN Reason Stop Dose Admin Calcium Carbonate 1,000 mg 04/01/24 20:20 Calcium Carbonate 500 Mg Tab PO Q2HR PRN Dyspepsia Carboprost Tromethamine 250 mcg 04/01/24 20:20 Carboprost 250 Mcg/Ml Ampul IM Q90M PRN Bleeding Diphenhydramine HCl 25 mg 04/03/24 16:09 Diphenhydramine 50 Mg/Ml Vial IV 04/04/24 16:09 Q3HR PRN PRURITUS Oxytocin/Lactated Ringer's 30 unit in 500 mls @ 200 mls/hr 04/01/24 20:20 Oxytocin Premix IV CONT PRN Bleeding Protocol Tranexamic Acid 1,000 mg/ 100 mls @ 600 mls/hr 04/01/24 20:20 Sodium Chloride IV NOW PRN Bleeding Oxytocin/Lactated Ringer's 30 unit in 500 mls @ 2 mls/hr 04/02/24 21:30 04/02/24 21:38 Oxytocin Premix IV 2 milliunit/min TITRATE TAMMY 2 mls/hr Administration Protocol 2 MILLIUNIT/MIN Lidocaine HCl 20 ml 04/01/24 20:20 Lidocaine 1% 20 Ml INJ INTRA-OP PRN Post Delivery Methylergonovine Maleate 0.2 mg 04/01/24 20:20 Methylergonovine 0.2 Mg Tablet PO Q6HR PRN Heavy Bleeding Methylergonovine Maleate 0.2 mg 04/01/24 20:20 Methylergonovine 0.2 Mg/Ml Vial IM NOW PRN Bleeding Metoclopramide HCl 10 mg 04/03/24 16:09 Metoclopramide 10 Mg/2 Ml Inj IV 04/04/24 16:09 Q4H PRN Nausea Mineral Oil 30 ml 04/01/24 20:20 Mineral Oil 30 Ml Udc TOP PRN PRN Version Misoprostol 800 mcg 04/01/24 20:20 Misoprostol 200 Mcg Tablet [place] NOW PRN Bleeding Naloxone HCl 0.2 mg 04/01/24 20:20 Naloxone 0.4 Mg/Ml Vial IV Q2MIN PRN Opiate Reversal Naloxone HCl 0.4 mg 04/03/24 16:09 Naloxone 0.4 Mg/Ml Vial IV Q2MIN PRN Opiate Reversal Ondansetron HCl 4 mg 04/01/24 20:20 04/03/24 15:11 Ondansetron 4 Mg/2 Ml Inj IV 4 mg Q4HR PRN Administration Nausea And Vomiting Ondansetron HCl 4 mg 04/03/24 17:00 Ondansetron 4 Mg/2 Ml Inj IV 04/03/24 21:01 Q4HR TAMMY Oxytocin 10 unit 04/01/24 20:20 Oxytocin 10 Unit/Ml Vial IM NOW PRN Bleeding Allergies: Allergies Allergy/AdvReac Type Severity Reaction Status Date / Time amoxicillin [AMOXICILLIN] Allergy Intermediate Rash Verified 03/23/24 09:37 Procedure Insertion date: 04/03/24 Insertion time: 15:49 Prep/Local: 1% lidocaine (CHG to back (5mL lido 1% to L3/4 interspace)) Interspace: L3/4 Patient position: sitting Needle: 18 gauge Hustead (27g Pencan through Hustead for CSE dose (1mL 0.25% MPF bupivacaine intrathecal following +CSF)) Loss of resistance with: saline GUILLERMINA at (cm): 7 Catheter placed at SKIN (cm): 12 Catheter in SPACE (cm): 5 Sensory level: T7 Insertion: No CSF, No Blood, No Paresthesia with insertion, No Paresthesia with injection and No Test dose reaction Initial Medications TEST DOSE time: 15:51 TEST DOSE: 1.5% lidocaine with epinephrine 1:200k (mL): 3 Infusion INFUSION: 0.125% bupivacaine and with fentanyl 2 mcg/mL Initial rate (mL/hr): 10 Post-procedure Anesthesia date START: 04/03/24 Anesthesia time START: 15:30 Anesthesia date END: 04/04/24 Anesthesia time END: 16:00 Post-procedure Anesthesia Assessment: Yes CV function: HR/BP stable, Yes Resp function: RR/sat/airway adequate, Yes Post-op hydration adequate, Yes Pain control adequate, Yes Nausea & vomiting absent, Yes Temperature > 36 C, Yes Mental status appropriate and No Anesthesia complications
[2024-04-03] MEDS: FENT 2MCG/ML BUPIV 0.125% EPI 200 MCG/100 ML PLAST..BAG 10 MCG EPIDURAL (23:24)
--- NOTE | 2024-04-04 04:55 | PM.AN.REGBLK ---
Regional Block Pre-procedure Procedure: Continuous Lumbar Epidural for L&D Labs: Hct 36.4 % (36-46) 04/01/24 20:36 Plt Count 246 X10^3/uL (150-400) 04/01/24 20:36 Medications: Current Medications Generic Name Dose Route Start Last Admin Trade Name Freq PRN Reason Stop Dose Admin Calcium Carbonate 1,000 mg 04/01/24 20:20 Calcium Carbonate 500 Mg Tab PO Q2HR PRN Dyspepsia Carboprost Tromethamine 250 mcg 04/01/24 20:20 Carboprost 250 Mcg/Ml Ampul IM Q90M PRN Bleeding Diphenhydramine HCl 25 mg 04/03/24 16:09 Diphenhydramine 50 Mg/Ml Vial IV 04/04/24 16:09 Q3HR PRN PRURITUS Diphenhydramine HCl 25 mg 04/03/24 16:10 Diphenhydramine 50 Mg/Ml Vial IV Q10M PRN Pruritis Diphenhydramine HCl 25 mg 04/04/24 04:51 Diphenhydramine 50 Mg/Ml Vial IV 04/05/24 04:52 Q3HR PRN PRURITUS Ephedrine Sulfate 10 mg 04/03/24 16:10 Ephedrine 50 Mg/Ml Vial IV Q5M PRN Blood pressure decrease more than 20% of baseline. Oxytocin/Lactated Ringer's 30 unit in 500 mls @ 200 mls/hr 04/01/24 20:20 Oxytocin Premix IV CONT PRN Bleeding Protocol Tranexamic Acid 1,000 mg/ 100 mls @ 600 mls/hr 04/01/24 20:20 Sodium Chloride IV NOW PRN Bleeding Oxytocin/Lactated Ringer's 30 unit in 500 mls @ 2 mls/hr 04/02/24 21:30 04/02/24 21:38 Oxytocin Premix IV 2 milliunit/min TITRATE TAMMY 2 mls/hr Administration Protocol 2 MILLIUNIT/MIN FENT 2MCG/ML BUPIV 0.125% EPI 200 mcg in 100 mls @ 10 mls/hr 04/03/24 16:00 04/03/24 23:24 Fentanyl/Bupiv/Ns 2mcg/Ml - 0.125% EPIDURAL 10 mls/hr CONT TAMMY Administration Lidocaine HCl 20 ml 04/01/24 20:20 Lidocaine 1% 20 Ml INJ INTRA-OP PRN Post Delivery Methylergonovine Maleate 0.2 mg 04/01/24 20:20 Methylergonovine 0.2 Mg Tablet PO Q6HR PRN Heavy Bleeding Methylergonovine Maleate 0.2 mg 04/01/24 20:20 Methylergonovine 0.2 Mg/Ml Vial IM NOW PRN Bleeding Metoclopramide HCl 10 mg 04/03/24 16:09 Metoclopramide 10 Mg/2 Ml Inj IV 04/04/24 16:09 Q4H PRN Nausea Metoclopramide HCl 10 mg 04/04/24 04:51 Metoclopramide 10 Mg/2 Ml Inj IV 04/05/24 04:52 Q4H PRN Nausea Mineral Oil 30 ml 04/01/24 20:20 Mineral Oil 30 Ml Udc TOP PRN PRN Version Misoprostol 800 mcg 04/01/24 20:20 Misoprostol 200 Mcg Tablet [place] NOW PRN Bleeding Nalbuphine HCl 2.5 mg 04/03/24 16:10 Nalbuphine 20 Mg/Ml Ampul IV Q10M PRN Pruritis Naloxone HCl 0.2 mg 04/01/24 20:20 Naloxone 0.4 Mg/Ml Vial IV Q2MIN PRN Opiate Reversal Naloxone HCl 0.4 mg 04/03/24 16:09 Naloxone 0.4 Mg/Ml Vial IV Q2MIN PRN Opiate Reversal Naloxone HCl 0.4 mg 04/04/24 04:51 Naloxone 0.4 Mg/Ml Vial IV Q2MIN PRN Opiate Reversal Ondansetron HCl 4 mg 04/01/24 20:20 04/03/24 15:11 Ondansetron 4 Mg/2 Ml Inj IV 4 mg Q4HR PRN Administration Nausea And Vomiting Ondansetron HCl 4 mg 04/04/24 05:00 Ondansetron 4 Mg/2 Ml Inj IV 04/04/24 09:01 Q4HR TAMMY Oxytocin 10 unit 04/01/24 20:20 Oxytocin 10 Unit/Ml Vial IM NOW PRN Bleeding Allergies: Allergies Allergy/AdvReac Type Severity Reaction Status Date / Time amoxicillin [AMOXICILLIN] Allergy Intermediate Rash Verified 03/23/24 09:37
[2024-04-04] MEDS: FENT 2MCG/ML BUPIV 0.125% EPI 200 MCG/100 ML PLAST..BAG 10 MCG EPIDURAL ×2 (07:30→14:48)
--- NOTE | 2024-04-04 08:55 | PM.OBPNLAB ---
Date/Time Date Patient Seen: 04/04/24 Time Patient Seen: 06:30 Pain Control Pain control: tolerating well and epidural Comments: Notified per RN on arrival to unit that patient is C/C/0 Pelvic Exam Dilation (cm): 8 Effacement (%): 100 station: -1 Amniotic membrane status: Ruptured Contractions Contractions on admission: none Monitor mode: External Pitocin rate (mU/min): 20 Contraction frequency (min): 7 Contraction pattern: Regular Contraction intensity: Mild Status status: Category l Monitor Accelerations: Present Monitor Decelerations: Absent Monitor Variability: Moderate Assessment and Plan Assessment: active labor Plan: continuous present management Comments: 34yo G1 at 37w2d, HD4/IOLd3 in setting of GHTN without pre-eclampsia IOL On MD check SVE 8/C/-1 with significant caput IUPC placed for assessment of adequacy, FSE for improved continuous monitoring plan on interval reassessment 4h post-adequacy Interval assessment at 1200: no interval cervical change, 8/C/0-1 Patient remained on pitocin at rate of 20 (provider miscommunication with RN) okay to increase pit >20, max 30, titrate to adequacy (max MVU since placement of IUPC ~130-175) reviewed with patient that if no further dilation achieved in one hour will recommend proceeding with primary Interval assessment 1300: repeat SVE, 10/C/0 with palpable caput to +2 set up to push, maternal VSS/afebrile, Cat 2 tracing (early decelerations), +accels/moderate variability Interval assessment 1345: provider request for partner evaluation (Dr. Mcmahan) to confirm position, concern for arrest of descent Excellent maternal expulsive efforts with contractions, pitocin at 28u 2 provider decision to allow for additional 30min of expulsive efforts with continued tolerance; if no interval descent will plan for 1LTCS at that time SSA Interval assessment 1415: no interval descent pt counseled on and in agreement with recommendation to proceed to primary section for second stage arrest OR notified, routine IV abx (2g ancef + 500mg azithromycin) high risk PPH (extended duration of pitocin), plan for all uterotonics in room + TXA at time of delivery
[2024-04-04] MEDS: OXYTOCIN PREMIX 30 UNIT/500 ML PLAST..BAG IV (13:40)
[2024-04-04] MEDS: CITRIC ACID/SODIUM CITRATE 15 ML SOLUTION 30 ML PO (14:47)
--- NOTE | 2024-04-04 15:31 | SUR.OPER ---
Supine on Padded OR bed, head on pillow, safety belt at thigh, arms secured on padded arm boards at <90 degrees abduction. Bump under right buttock. Legs uncrossed with pillow under knees, gel pad to heels, tape over blanket to lower legs.
[2024-04-04] MEDS: CEFAZOLIN 2 GM/100 ML PREMIX 100 ML IV (15:40)
--- NOTE | 2024-04-04 16:00 | SUR.OPER ---
viable baby born at 1600
[2024-04-04] MEDS: TRANEXAMIC ACID 1,000 MG in SODIUM CHLORIDE 0.9% 100 ML 600 MG IV (16:03)
[2024-04-04] MEDS: BUPIVACAINE 0.25% (PF) VIAL 30 ML INJ (16:37)
[2024-04-04] MEDS: LACTATED RINGERS 1,000 ML 999 ML IV (16:39)
[2024-04-04 17:08] LABS: Add Manual Diff / Slide Review NO; Basophils Absolute Auto 0 /uL (0-100); Basophils Percent Auto 0.2 % (0-2); Eosinophils Absolute Auto 0 /uL (0-450); Eosinophils Percent Auto 0.1 % (2-4); Hematocrit 31.7 % (36-46); Hemoglobin 10.3 g/dL (12.0-16.0); Lymphocytes Absolute Auto 1500 /uL (1100-4500); Lymphocytes Percent Auto 6.6 % (25-40); Mean Corpuscular HGB Conc 32.5 % (30-36); Mean Corpuscular Hemoglobin 26.3 PG (26-34); Mean Corpuscular Volume 80.8 fL (80-100); Monocytes Absolute Auto 1500 /uL (0-900); Monocytes Percent Auto 6.7 % (3-14); Neutrophils Absolute Auto 19800 /uL (1500-7000); Neutrophils Percent Auto 86.4 % (50-75); Platelet Count 204 X10^3/uL (150-400); Red Blood Cell Count 3.92 X10^6/uL (4.0-5.2); Red Cell Distribution Width 16.6 % (11.6-14.8); White Blood Cell Count 22.9 X10^3/uL (4.5-11.0)
[2024-04-04 17:11] VITALS: BP 136/67; PULSE 86; RESP 15; TEMP 36.9; O2SAT 94
[2024-04-04 17:16] VITALS: BP 126/62; PULSE 91; RESP 16; O2SAT 94
[2024-04-04 17:21] LABS: Alanine Aminotransferase 13 IU/L (<35); Albumin 2.9 g/dL (3.5-5.0); Albumin Globulin Ratio 1.1 (1.0-2.8); Alkaline Phosphatase 111 U/L (38-126); Aspartate Aminotransferase 22 IU/L (14-36); BUN Creatinine Ratio 12.3 (6-22); Bilirubin Total 1.6 mg/dL (0.2-1.3); Blood Urea Nitrogen 17 mg/dL (7-17); Calcium 8.5 mg/dL (8.4-10.2); Carbon Dioxide 19 mmol/L (22-32); Chloride 102 mmol/L (98-107); Estimated Glomerular Filt Rate 52 mL/min (>60); Globulin 2.7 g/dL (1.7-4.1); Glucose 119 mg/dL (70-100); HEMOLYSIS < 15 (0-50); Potassium 3.7 mmol/L (3.4-5.1); Sodium 129 mmol/L (137-145); Total Protein 5.6 g/dL (6.3-8.2)
[2024-04-04 17:22] VITALS: BP 134/66; PULSE 95; RESP 16; O2SAT 97
[2024-04-04 17:26] VITALS: BP 118/59; PULSE 95; RESP 14; TEMP 36.3; O2SAT 95
[2024-04-04 17:30] VITALS: BP 95/76; PULSE 95; RESP 18; O2SAT 95
--- NOTE | 2024-04-04 17:41 | PM.OBCS.1 ---
Operative Date/Time/Diagnoses Date of procedure: 04/04/24 Time of procedure: 16:00 Pre-op diagnosis: 1) IUP at 37w3d 2) gestational hypertension without pre-eclampsia 3) second stage arrest Post-op diagnosis: same Procedure & Clinicians Procedure: primary low transverse section Same procedure as scheduled: Yes Indications: second stage arrest Surgeon: Fernanda Antunez Primary Teaching Assistant: Lucy Mcmahan Reason for Primary Teaching Assistant: complexity and acuity of procedure; Dr. Surinder Chaidez also present and assisting secondary to intervening patient care needs Anesthesia Type: Epidural Operative Notes Findings: Severe adhesion of omentum to anterior abdominal wall c/w remote hepatic resection normal appearing uterus, bilateral adnexae LBMI in cephalic OT presentation, significant caput/molding noted on delivery very narrow pelvic outlet consistent with cephalopelvic disproportion Closure Type: primary Specimen(s): cord blood Intraoperative meds administered: Pitocin and Tranexamic acid Estimated Blood Loss (mL): 1,000 Blood products transfused: none Procedure in detail: Pt was taken to the operating room and transferred to OR table.? The epidural was dosed to a surgical level per anesthesia.? heart tones obtained and at baseline (130bpm). The patient was placed in the supine position, prepped and draped in a sterile fashion.? Prior to incision the level of anesthesia was rechecked and found to be adequate.? A timeout was once again performed. A pfannensteil incision was made 2cm superior to the pubic symphysis.? This incision was carried down sharply to the level of the rectus fascia.? The fascia was incised sharply with knife and the incision was extended bilaterally and superiorly using hummel scissors. The superior border of the fascia was elevated with two Yanira clamps and bluntly dissected off of the rectus muscles followed by incision of the median raphe with the hummel scissors.? Attention was then turned to the inferior border of the fascia which was dissected away from the underlying musculature in a similar manner down to the level of the pubic symphysis.? The rectus muscles were then in the midline with noted significant adhesion of omentum to anterior peritoneum. This was taken down sharply under direct visualization taking great care not to injure the adjacent vasculature. The peritoneum was identified.? The peritoneum was entered bluntly under direct visualization.? The peritoneal opening was then extended manually.? The process plant operator?s hand was inserted in the abdomen and the uterus was found to be in levo-rotated position with very narrow pelvic outlet. The bladder blade was then inserted. The vesicouterine peritoneum was identified, elevated using DeBakey forceps and incised in the midline using Metzenbaum scissors.? The incision was carried laterally and superiorly bilaterally.? A bladder flap was further developed digitally and the bladder blade was replaced.? Next, a low transverse incision was made in the uterus using the knife.? The incision was extended laterally and superiorly bilaterally bluntly.? The process plant operator?s hand was then inserted into the uterus to find an in the vertex OT position at approximately 1-2+ station.? The bladder blade was removed and ?s vertex was grasped, elevated, then flexed and brought to the incision where the infant was delivered atraumatically using fundal pressure.? vigorous at time of delivery; the cord was doubly clamped and cut after allowing for 60 seconds.? The infant was then passed to waiting staff for further evaluation.? The placenta was delivered via gentle traction with additional manual extraction as necessary; the placenta was then passed off the field. ? The uterus was exteriorized briefly and then replaced secondary to patient intolerance and decreased visualization of the hysterotomy. The uterine cavity was wiped of all clots and debris.? The bladder blade was reinserted and the hysterotomy apices were tagged atraumatically using allis clamps with noted deep bilateral extensions to the level of but not through the cervix. The extensions as well as the incision was repaired with #0 vicryl in a running locked fashion, followed by a second #0 vicryl in an imbricating fashion.? Tubes, ovaries and adnexae were visualized and noted to be grossly normal in appearance.? The hysterotomy was noted to be hemostatic off of tension.? PerClot was placed along the denuded lower uterine segment for further hemostasis prophylaxis given persistent venous oozing without distinct vessel source. The rectus fascia was closed using #1 vicryl in a running fashion.? The incision was irrigated and hemostasis was achieved using the bovie.? The subcutaneous space was reapproximated using plain gut suture in a running fashion.? The skin was closed using 4-0 monocryl followed by application of steristrips and abdominal compression dressing.? All counts were correct x2.? The pt tolerated the procedure well and without difficulty. Fundal contents were expressed and fundus noted to be firm, level noted prior to patient transfer to PACU in stable condition.? Complications: none Baby 1: Gender: Male Presentation: vertex Position: Right Occiput Transverse Placental Delivery Description: Manual Removal Cord Vessel Description: 3 Vessels, Nuchal Cord and Reduced Post-operative Condition: stable Disposition: PACU Aftercare: routine postop
[2024-04-04] MEDS: MAGNESIUM SULFATE 4 GM/100 ML PIGGYBACK IV (18:11)
[2024-04-04] MEDS: MAGNESIUM SULFATE 20 GM/500 ML IV.SOLN IV (18:43)
[2024-04-04] MEDS: ACETAMINOPHEN 325 MG TABLET 650 MG PO (22:43)
[2024-04-04] MEDS: IBUPROFEN 600 MG TABLET PO (22:59)
[2024-04-05 00:12] LABS: Magnesium 3.6 mg/dL (1.6-2.3)
[2024-04-05] MEDS: IBUPROFEN 600 MG TABLET PO ×2 (04:41→10:33)
[2024-04-05] MEDS: ACETAMINOPHEN 325 MG TABLET 650 MG PO ×4 (04:41→21:04)
[2024-04-05 06:32] LABS: Add Manual Diff / Slide Review NO; Basophils Absolute Auto 0 /uL (0-100); Basophils Percent Auto 0.1 % (0-2); Eosinophils Absolute Auto 0 /uL (0-450); Eosinophils Percent Auto 0.1 % (2-4); Hematocrit 29.3 % (36-46); Hemoglobin 9.6 g/dL (12.0-16.0); Lymphocytes Absolute Auto 1400 /uL (1100-4500); Lymphocytes Percent Auto 7.3 % (25-40); Mean Corpuscular HGB Conc 32.8 % (30-36); Mean Corpuscular Hemoglobin 26.5 PG (26-34); Mean Corpuscular Volume 80.7 fL (80-100); Monocytes Absolute Auto 1000 /uL (0-900); Neutrophils Absolute Auto 17300 /uL (1500-7000); Neutrophils Percent Auto 87.5 % (50-75); Platelet Count 210 X10^3/uL (150-400); Red Blood Cell Count 3.64 X10^6/uL (4.0-5.2); Red Cell Distribution Width 16.1 % (11.6-14.8); White Blood Cell Count 19.7 X10^3/uL (4.5-11.0)
[2024-04-05] MEDS: OXYCODONE IR 5 MG TABLET PO ×4 (07:48→19:39)
[2024-04-05 09:02] LABS: Creatinine Urine Random 44.54 mg/dL
[2024-04-05 10:05] LABS: Alanine Aminotransferase 19 IU/L (<35); Albumin 3.1 g/dL (3.5-5.0); Alkaline Phosphatase 98 U/L (38-126); Aspartate Aminotransferase 24 IU/L (14-36); BUN Creatinine Ratio 18.8 (6-22); Bilirubin Total 0.7 mg/dL (0.2-1.3); Blood Urea Nitrogen 12 mg/dL (7-17); Carbon Dioxide 21 mmol/L (22-32); Chloride 106 mmol/L (98-107); Estimated Glomerular Filt Rate > 60 mL/min (>60); Glucose 125 mg/dL (70-100); HEMOLYSIS 25 (0-50); Magnesium 4.1 mg/dL (1.6-2.3); Potassium 3.9 mmol/L (3.4-5.1); Sodium 134 mmol/L (137-145); Total Protein 6.1 g/dL (6.3-8.2)
[2024-04-05] MEDS: PRENATAL VIT,CALC/IRON/FOLIC 1 TABLET 1 TAB PO (10:33)
[2024-04-05] MEDS: HYDROMORPHONE 1 MG INJ IV ×3 (12:08→17:08)
[2024-04-05] MEDS: polyethylene glycoL 3350 17 GM POWD.PACK PO (12:09)
--- NOTE | 2024-04-05 12:21 | DI.CT.S_ITS ---
PROCEDURE: CT ABDOMEN PELVIS W CON INDICATIONS: Severe abdominal pain post TECHNIQUE: After the administration of intravenous contrast, axial sections acquired from the lung bases to the pubic symphysis. Coronal and sagittal reformats were performed. For radiation dose reduction, the following was used: automated exposure control, adjustment of mA and/or kV according to patient size. COMPARISON: None. FINDINGS: Image quality: Diagnostic. Lower Chest: Trace pleural effusions with bibasilar atelectasis. ABDOMEN: Liver: No solid mass. Enlarged. Gallbladder: Absent. Biliary ducts: No biliary dilation. Pancreas: No ductal dilation. Spleen: Spleen is mildly enlarged, possibly due to recent . Adrenal Glands: No adrenal nodules. Kidneys and Ureters: No hydronephrosis. No solid mass. No complex renal cystic lesion which requires follow up. Stomach and Bowel: Normal colonic caliber, without significant wall thickening. No significant diverticular disease. Appendix not identified, but there is no pericecal fat stranding to suggest appendicitis. Peritoneum: Small volume free fluid and free air. Ventral Wall: No significant ventral hernia. Gas along the anterior abdominal wall. Abdominal Nodes: No retroperitoneal or mesenteric adenopathy by size criteria. Vessels: Aorta and inferior vena cava are normal in size. PELVIS: Pelvic Organs: Uterus is enlarged. Anterior scar present. Gas within the surgical bed and endometrium. Bladder: Cleary catheter in place. Air within the urinary bladder, presumably iatrogenic. Pelvic Nodes: No enlarged lymph nodes. Miscellaneous: No inguinal hernias are seen. Bones: No aggressive osseous abnormality. IMPRESSION: Post gravid uterus. Surgical changes of a recent hysterectomy period air within the endometrium, and along the surgical scar, presumably iatrogenic, less likely endometritis. Correlate with symptoms. Small amount of free air and free fluid in the abdomen, within normal limits given recent surgery. Trace pleural effusions, presumably related to volume status. Dictated by: Travis Portillo M.D. on 04/05/2024 at 13:18 Approved by: Travis Portillo M.D. on 04/05/2024 at 13:25
[2024-04-05] MEDS: HYDROMORPHONE 0.5 MG INJ IV (12:33)
[2024-04-05] MEDS: MAGNESIUM SULFATE 20 GM/500 ML IV.SOLN IV (12:38)
[2024-04-05] MEDS: LORazepam 2 MG/ML INJ 0.5 MG IV (12:41)
[2024-04-05] MEDS: LACTATED RINGERS 1,000 ML 100 ML IV (13:32)
[2024-04-05] MEDS: KETOROLAC 30 MG/ML VIAL IV ×2 (14:52→21:04)
--- NOTE | 2024-04-05 16:22 | PM.OBPN.1 ---
Subjective - OB Subjective Patient comments: no complaints, incisional pain, tolerating diet and flatus present baby status: doing well [place] feeding status: exclusively breast feeding Narrative: Nette is doing well but she is having difficulty with pain in her incision and lower abdomen especially on the left side. Exam does not show any significant abnormality and pelvic CT with IV contrast shows no suggestion of bleeding or hematoma formation. All findings were normal for the immediate postoperative condition. Patient reassured and pain medications adjusted accordingly. IV magnesium sulfate continues at 1 gram/hour and will be discontinued between 1800 and 1900 this evening. Repeat [facility] labs will be drawn tomorrow morning and if stable, probable discharge. Date Patient Seen: 04/05/24 Time Patient Seen: 12:35 Exam Vital Signs (past 8 hours): Oxygen Delivery Method Room Air Oxygen Flow Rate 0 Const General: cooperative and comfortable Nutritional Appearance: average body habitus Orientation: alert and oriented x3 HENMT Head: normal to inspection, normocephalic and atraumatic Ears: hearing grossly normal bilaterally Face and sinus: face symmetric Eyes General: appearance normal, both eyes and all related structures Conjunctivae: conjunctivae normal Sclera: sclerae normal EOM: EOM intact bilaterally Neck Neck: normal visual inspection Resp Effort & Inspection: normal respiratory effort and able to speak in complete sentences Auscultation: clear to auscultation bilaterally Cardio Rate: regular rate Rhythm: regular rhythm Heart Sounds: S1 normal, S2 normal and no murmurs GI Inspection: normal to inspection and incision (Surgical dressing clean and dry, no induration or ecchymosis) Palpation: soft, no hepatosplenomegaly and tender (Mild, diffuse postsurgical tenderness especially incisional, lL>R) Auscultation: hypoactive bowel sounds and other (Bowel sounds are present in all quadrants) External Female Exam: other (No significant bleeding noted) Extrem General: no calf tenderness Psych Appearance: grossly normal Mental Status: mental status grossly normal Speech and Movement: speech and movement normal Mood: congruent mood Affect: normal affect Attitude: cooperative Thought Process: normal Thought Content: normal Judgment: judgment good Objective Imaging Pelvic CT w/ IV contrast: Radiologist's impression: FINDINGS: Image quality: Diagnostic. Lower Chest: Trace pleural effusions with bibasilar atelectasis. ABDOMEN: Liver: No solid mass. Enlarged. Gallbladder: Absent. Biliary ducts: No biliary dilation. Pancreas: No ductal dilation. Spleen: Spleen is mildly enlarged, possibly due to recent . Adrenal Glands: No adrenal nodules. Kidneys and Ureters: No hydronephrosis. No solid mass. No complex renal cystic lesion which requires follow up. Stomach and Bowel: Normal colonic caliber, without significant wall thickening. No significant diverticular disease. Appendix not identified, but there is no pericecal fat stranding to suggest appendicitis. Peritoneum: Small volume free fluid and free air. Ventral Wall: No significant ventral hernia. Gas along the anterior abdominal wall. Abdominal Nodes: No retroperitoneal or mesenteric adenopathy by size criteria. Vessels: Aorta and inferior vena cava are normal in size. PELVIS: Pelvic Organs: Uterus is enlarged. Anterior scar present. Gas within the surgical bed and endometrium. Bladder: Cleary catheter in place. Air within the urinary bladder, presumably iatrogenic. Pelvic Nodes: No enlarged lymph nodes. Miscellaneous: No inguinal hernias are seen. Bones: No aggressive osseous abnormality. IMPRESSION: Post gravid uterus. Surgical changes of a recent hysterectomy period air within the endometrium, and along the surgical scar, presumably iatrogenic, less likely endometritis. Correlate with symptoms. Small amount of free air and free fluid in the abdomen, within normal limits given recent surgery. Trace pleural effusions, presumably related to volume status. Labs 04/05/24 06:07 04/05/24 09:37 Labs: Laboratory Results - last 24 hr 04/04/24 04/04/24 04/05/24 16:50 23:52 06:07 WBC 22.9 H 19.7 H RBC 3.92 L 3.64 L Hgb 10.3 L 9.6 L Hct 31.7 L 29.3 L MCV 80.8 80.7 MCH 26.3 26.5 MCHC 32.5 32.8 RDW 16.6 H 16.1 H Plt Count 204 210 Neut % (Auto) 86.4 H 87.5 H Lymph % (Auto) 6.6 L 7.3 L [place] % (Auto) 6.7 5.0 Eos % (Auto) 0.1 L 0.1 L Baso % (Auto) 0.2 0.1 Neut # (Auto) 64251 H 79880 H Lymph # (Auto) 1500 1400 [place] # (Auto) 1500 H 1000 H Eos # (Auto) 0 0 Baso # (Auto) 0 0 Sodium 129 L Potassium 3.7 Chloride 102 Carbon Dioxide 19 L BUN 17 Creatinine 1.38 H Estimated GFR 52 L BUN/Creatinine Ratio 12.3 Glucose 119 H Calcium 8.5 Magnesium 3.6 H Total Bilirubin 1.6 H AST 22 ALT 13 Alkaline Phosphatase 111 Total Protein 5.6 L Albumin 2.9 L Globulin 2.7 Albumin/Globulin Ratio 1.1 Urine Creatinine 04/05/24 04/05/24 08:35 09:37 WBC RBC Hgb Hct MCV MCH MCHC RDW Plt Count Neut % (Auto) Lymph % (Auto) [place] % (Auto) Eos % (Auto) Baso % (Auto) Neut # (Auto) Lymph # (Auto) [place] # (Auto) Eos # (Auto) Baso # (Auto) Sodium 134 L Potassium 3.9 Chloride 106 Carbon Dioxide 21 L BUN 12 Creatinine 0.64 Estimated GFR > 60 BUN/Creatinine Ratio 18.8 Glucose 125 H Calcium 9.0 Magnesium 4.1 H Total Bilirubin 0.7 AST 24 ALT 19 Alkaline Phosphatase 98 Total Protein 6.1 L Albumin 3.1 L Globulin 3.0 Albumin/Globulin Ratio 1.0 Urine Creatinine 44.54 Assessment & Plan Assessment and Plan (1) Pre-eclampsia affecting puerperium: Status: Acute (2) delivery, delivered, current hospitalization: Status: Acute Plan day: 1 plan OB: routine care Comments: Will complete 24 hours of intravenous magnesium sulfate this evening between 6 and 8:00 p.m.. Repeat [facility] labs in a.m. with probable discharge if blood pressure and labs are stable at that time. Time-Based Coding :: [TOTAL MINUTES] spent with patient and on the chart (including review of chart, obtaining history, exam, reviewing outside data, placing orders, documenting exam and treatment plan, and counseling patient) on [DATE].
[2024-04-05 17:03] LABS: Add Manual Diff / Slide Review NO; Basophils Absolute Auto 0 /uL (0-100); Basophils Percent Auto 0.2 % (0-2); Eosinophils Absolute Auto 100 /uL (0-450); Eosinophils Percent Auto 0.4 % (2-4); Hematocrit 29.1 % (36-46); Hemoglobin 9.5 g/dL (12.0-16.0); Lymphocytes Absolute Auto 1600 /uL (1100-4500); Lymphocytes Percent Auto 9.1 % (25-40); Mean Corpuscular HGB Conc 32.6 % (30-36); Mean Corpuscular Hemoglobin 26.5 PG (26-34); Mean Corpuscular Volume 81.4 fL (80-100); Monocytes Absolute Auto 700 /uL (0-900); Monocytes Percent Auto 3.9 % (3-14); Neutrophils Absolute Auto 14800 /uL (1500-7000); Neutrophils Percent Auto 86.4 % (50-75); Platelet Count 206 X10^3/uL (150-400); Red Blood Cell Count 3.57 X10^6/uL (4.0-5.2); Red Cell Distribution Width 16.7 % (11.6-14.8); White Blood Cell Count 17.1 X10^3/uL (4.5-11.0)
[2024-04-06] MEDS: OXYCODONE IR 5 MG TABLET PO ×3 (01:28→11:54)
[2024-04-06] MEDS: KETOROLAC 30 MG/ML VIAL IV (03:05)
[2024-04-06] MEDS: ACETAMINOPHEN 325 MG TABLET 650 MG PO ×2 (03:05→09:10)
[2024-04-06 06:14] LABS: Add Manual Diff / Slide Review NO; Basophils Absolute Auto 100 /uL (0-100); Basophils Percent Auto 0.4 % (0-2); Eosinophils Absolute Auto 200 /uL (0-450); Eosinophils Percent Auto 0.9 % (2-4); Hematocrit 30.8 % (36-46); Hemoglobin 10.1 g/dL (12.0-16.0); Lymphocytes Absolute Auto 1800 /uL (1100-4500); Lymphocytes Percent Auto 10.5 % (25-40); Mean Corpuscular HGB Conc 32.7 % (30-36); Mean Corpuscular Hemoglobin 26.7 PG (26-34); Mean Corpuscular Volume 81.9 fL (80-100); Monocytes Absolute Auto 800 /uL (0-900); Monocytes Percent Auto 4.5 % (3-14); Neutrophils Absolute Auto 14500 /uL (1500-7000); Neutrophils Percent Auto 83.7 % (50-75); Platelet Count 252 X10^3/uL (150-400); Red Blood Cell Count 3.77 X10^6/uL (4.0-5.2); Red Cell Distribution Width 16.8 % (11.6-14.8); White Blood Cell Count 17.4 X10^3/uL (4.5-11.0)
[2024-04-06 06:25] LABS: Alanine Aminotransferase 11 IU/L (<35); Albumin 2.8 g/dL (3.5-5.0); Alkaline Phosphatase 94 U/L (38-126); Aspartate Aminotransferase 17 IU/L (14-36); BUN Creatinine Ratio 14.9 (6-22); Bilirubin Total 0.9 mg/dL (0.2-1.3); Blood Urea Nitrogen 10 mg/dL (7-17); Calcium 9.3 mg/dL (8.4-10.2); Carbon Dioxide 24 mmol/L (22-32); Chloride 105 mmol/L (98-107); Estimated Glomerular Filt Rate > 60 mL/min (>60); Globulin 2.7 g/dL (1.7-4.1); Glucose 94 mg/dL (70-100); HEMOLYSIS < 15 (0-50); Potassium 4.2 mmol/L (3.4-5.1); Sodium 135 mmol/L (137-145); Total Protein 5.5 g/dL (6.3-8.2)
--- NOTE | 2024-04-06 08:52 | PM.OBDS.1 ---
Discharge Providers Provider Date of admission: 04/01/24 19:33 Discharge Date: 04/06/24 Primary care physician: Esther Jara DO Consults: 04/01/24 20:20 Consult to Anesthesiology Urgent Comment: Consulting Provider: Anesthesiologist Reason for consultation: Epidural 04/04/24 18:41 Consult to [place] Routine Comment: Discharge provider: Babatunde Silveira MD Summary Hospital Course Date Patient Seen: 04/06/24 Time Patient Seen: 07:52 Diagnoses: Intrauterine gestation, 37+ 3 weeks, delivered by primary section Secondary arrest of descent in the 2nd stage Preeclampsia without severe features Hospital Course: Nette Hernandez is a 34 year old female G1 at 37w0d by 8wk US presents for IOL at early term in setting of GHTN. course notable for PIH, mild range BP with intermittent proteinuria but otherwise no s/sx of pre-eclampsia with or without severe features on serial lab/ testing since 32wga; h/o maternal benign hepatic tumor s/p resection (followed by GI, no complication); excessive maternal weight gain (>50#). Pt denies VB, LOF, dysuria, ctx. ++FM. Nette was admitted for cervical ripening on the evening of 04/01/2020 and progressed slowly with sequential efforts to improve her Blount score prior to initiation of Pitocin. Once she had progressed sufficiently, Pitocin induction was initiated and continued with placement of continuous lumbar epidural anesthesia patient entered 2nd stage but had a well documented secondary arrest of descent and underwent primary section on the afternoon of 04/04/2024 productive of a viable male Apgars of 8/8 with a weight of 3039 g (6 lb 11.2 oz). Following delivery the mother received magnesium sulfate IV times 24 hours with normal or mildly elevated blood pressures throughout her course. Preeclampsia labs post delivery were negative for significant abnormalities. Both mother and baby have done well following delivery with the mother experiencing prompt return of bowel and bladder function, she is ambulating independently, tolerating regular diet, and her pain is well controlled with oral pain medications. She will be discharged at this time to home in an afebrile normotensive condition after counseling regarding precautionary symptoms, limitations of activity, medications, plans for follow-up which will be in 1 week. Medications at discharge will include resumption of all preadmission medications including nifedipine 30 mg extended release p.o. q.d., thin oxycodone 5 mg every 6 hours as needed for pain, dispense 20 with no refills, and ibuprofen 600 mg p.o. q.6 hours as needed pain dispense 20 with Peripartum Data Infant Delivery Method: Section Laceration Description: None Episiotomy description: None Procedures: Continuous lumbar epidural Primary section (low transverse cervical) complications: none [place] 1: Gender: Male Disposition of : home Discharge Diagnosis (1) Pre-eclampsia affecting puerperium: Status: Acute (2) delivery, delivered, current hospitalization: Status: Acute Status at Discharge Cognitive/behavioral status at discharge: oriented Functional status at discharge: independent ambulation Overall status at discharge: patient is progressing back to baseline Time Spent with Patient Time attestation: Total time spent providing and/or coordinating discharge services: Time spent: Less than 30 minutes Objective Labs 04/06/24 06:00 04/06/24 06:00 Labs: Laboratory Results - last 24 hr 04/05/24 04/05/24 04/05/24 08:35 09:37 16:56 WBC 17.1 H RBC 3.57 L Hgb 9.5 L Hct 29.1 L MCV 81.4 MCH 26.5 MCHC 32.6 RDW 16.7 H Plt Count 206 Neut % (Auto) 86.4 H Lymph % (Auto) 9.1 L [place] % (Auto) 3.9 Eos % (Auto) 0.4 L Baso % (Auto) 0.2 Neut # (Auto) 62656 H Lymph # (Auto) 1600 [place] # (Auto) 700 Eos # (Auto) 100 Baso # (Auto) 0 Sodium 134 L Potassium 3.9 Chloride 106 Carbon Dioxide 21 L BUN 12 Creatinine 0.64 Estimated GFR > 60 BUN/Creatinine Ratio 18.8 Glucose 125 H Calcium 9.0 Magnesium 4.1 H Total Bilirubin 0.7 AST 24 ALT 19 Alkaline Phosphatase 98 Total Protein 6.1 L Albumin 3.1 L Globulin 3.0 Albumin/Globulin Ratio 1.0 Urine Creatinine 44.54 04/06/24 06:00 WBC 17.4 H RBC 3.77 L Hgb 10.1 L Hct 30.8 L MCV 81.9 MCH 26.7 MCHC 32.7 RDW 16.8 H Plt Count 252 Neut % (Auto) 83.7 H Lymph % (Auto) 10.5 L [place] % (Auto) 4.5 Eos % (Auto) 0.9 L Baso % (Auto) 0.4 Neut # (Auto) 29379 H Lymph # (Auto) 1800 [place] # (Auto) 800 Eos # (Auto) 200 Baso # (Auto) 100 Sodium 135 L Potassium 4.2 Chloride 105 Carbon Dioxide 24 BUN 10 Creatinine 0.67 Estimated GFR > 60 BUN/Creatinine Ratio 14.9 Glucose 94 Calcium 9.3 Magnesium Total Bilirubin 0.9 AST 17 ALT 11 Alkaline Phosphatase 94 Total Protein 5.5 L Albumin 2.8 L Globulin 2.7 Albumin/Globulin Ratio 1.0 Urine Creatinine Exam Vital Signs (past 8 hours): Oxygen Delivery Method Room Air Oxygen Flow Rate 0 Const General: cooperative and comfortable Nutritional Appearance: average body habitus Orientation: alert and oriented x3 HENMT Head: normal to inspection, atraumatic and abrasion Ears: hearing grossly normal bilaterally Face and sinus: face symmetric Eyes General: appearance normal, both eyes and all related structures Conjunctivae: conjunctivae normal Sclera: sclerae normal EOM: EOM intact bilaterally Neck Neck: normal visual inspection Resp Effort & Inspection: normal respiratory effort and able to speak in complete sentences Auscultation: clear to auscultation bilaterally Cardio Rate: regular rate Rhythm: regular rhythm Heart Sounds: S1 normal, S2 normal and no murmurs GI Inspection: normal to inspection and incision (Inciin clean and dry, steri-strips in place) Palpation: soft, no hepatosplenomegaly and tender (Mild, diffuse postsurgical tenderness) Auscultation: normal bowel sounds External Female Exam: other (No significant bleeding noted) Extrem General: no calf tenderness Psych Appearance: grossly normal Mental Status: mental status grossly normal Speech and Movement: speech and movement normal Mood: congruent mood Affect: normal affect Attitude: cooperative Thought Process: normal Thought Content: normal Judgment: judgment good Discharge Plan Discharge Plan Patient Disposition: Home Provider Discharge Comment: Please review the written instructions you received when you were discharged from the hospital. Your follow-up appointment will be scheduled for 1 week after your and we look forward to seeing you then. If however in the meanwhile you have any issues, concerns, or questions, please contact the office either by phone at [phone], or via the patient portal. Discharge orders & Medications Prescriptions: New ibuprofen 600 mg Tablet 600 mg PO Q6H PRN (Reason: fever or pain) Qty: 30 2RF oxycodone 5 mg Tablet 5 mg PO Q4H PRN (Reason: Pain, Moderate (4-6)) Qty: 20 0RF Continued vit-ferrous sulfat-FA 27 mg iron- 0.8 mg tablet 1 tab PO 1XD No Action nifedipine 30 mg tablet extended release 30 mg PO DAILY Qty: 30 0RF Follow up/Referrals: Esther Jara DO [Primary Care Provider] - Babatunde Silveira MD [Physician] - 1 Week (Please follow up with your 1 week incision appointment with Dr silveira on 04/17/2024 @ 2:30pm. Please follow up with your 6 week appointment on 05/15/2024 @ 9:00 am. If you have any questions please call the clinic. ) Discharge Health Status Multidrug resistant organism: No MDRO Diet/Activity/Treatments Diet: Diet as Tolerated Activity: As tolerated Other treatments: Paoj-vkh-fefkzmo Tylenol may also be used for additional pain relief. Rcij-vpu-aplwcpf stool softeners and/or MiraLax may be used as needed for constipation. Skin/Wound/Dressing Care Report to your healthcare provider any signs of infection, such as:: chills, fever, increased pain, unusual drainage and unusual redness Dressing: N/A Visit Report/Discharge Packet Instructions: DI for , DI for and Nipple Soreness, DI for Prescription Opioid Use Stand Alone Forms: Discharge: Care Discharge Data Primary Care Provider: Esther Jara
[2024-04-06] MEDS: IBUPROFEN 600 MG TABLET PO (09:09)
[2024-04-06] MEDS: polyethylene glycoL 3350 17 GM POWD.PACK PO (09:09)
[2024-04-06] MEDS: PRENATAL VIT,CALC/IRON/FOLIC 1 TABLET 1 TAB PO (09:09)
[2024-04-06 13:30] VITALS: BP 120/71; PULSE 84; RESP 16; TEMP 36.6
== END 2024-04-06 14:00 | disposition home or self-care (01) | DRG 788 ==
PROVIDERS: Obstetrics & Gynecology; Admitting Provider Obstetrics & Gynecology; PCP Family Medicine; Referring Provider Obstetrics & Gynecology; Visit Provider Obstetrics & Gynecology
PROC: 10D00Z1 Extraction of Products of Conception, Low, Open Approach (ICD-10-PCS; CPT 59514; principal; 2024-04-04 14:45)
DX: O62.1 Secondary uterine inertia (principal); O14.05 Mild to moderate pre-eclampsia, complicating the puerperium; O76 Abnormality in fetal heart rate and rhythm complicating labor and delivery; O13.4 Gestational [pregnancy-induced] hypertension without significant proteinuria, complicating childbirth; Z3A.37 37 weeks gestation of pregnancy; Z37.0 Single live birth; O99.892 Other specified diseases and conditions complicating childbirth; N73.6 Female pelvic peritoneal adhesions (postinfective); O13.3 Gestational [pregnancy-induced] hypertension without significant proteinuria, third trimester; O36.8130 Decreased fetal movements, third trimester, not applicable or unspecified; Z3A.36 36 weeks gestation of pregnancy
CPT/HCPCS: 36415; 59025; 59050; 59200; 74177; 80053; 82570; 83735; 84550; 85025; 86850; 86900; 86901; G0379; J0690; J1171; J1885; J2060; J2274; J2405; J2590; J2704; J3010; J3475; Q9967; S0191

== ENCOUNTER 2024-04-09 11:04 | Observation (INO) | payer OTHER, SELFPAY ==
[2024-04-09 11:18] VITALS: BP 137/76; PULSE 88; RESP 16; O2SAT 99
[2024-04-09 11:34] VITALS: BP 136/73
--- NOTE | 2024-04-09 11:36 | PC.NURSE ---
RN at bedside at 1118 assessing patient. patient reports blurred vision. per patient the blurred vision has been on and off since Tuesday. it is mainly when I stand up but it is not constant. NO RUQ, no headache. swelling in ankles, feet and tibias. nonpitting edema. blood pressure 137/76. 97.4 F temporal temperature. HR is 88 and 02 sat is 99%. patient is currently taking 20 mg lasix PO daily at 0800 in the morning.
[2024-04-09 11:49] VITALS: BP 139/79
[2024-04-09 12:00] LABS: Alanine Aminotransferase 17 IU/L (<35); Albumin 3.5 g/dL (3.5-5.0); Albumin Globulin Ratio 1.1 (1.0-2.8); Alkaline Phosphatase 91 U/L (38-126); Aspartate Aminotransferase 26 IU/L (14-36); BUN Creatinine Ratio 19.1 (6-22); Bilirubin Total 0.7 mg/dL (0.2-1.3); Blood Urea Nitrogen 13 mg/dL (7-17); Calcium 9.6 mg/dL (8.4-10.2); Carbon Dioxide 27 mmol/L (22-32); Chloride 104 mmol/L (98-107); Estimated Glomerular Filt Rate > 60 mL/min (>60); Globulin 3.1 g/dL (1.7-4.1); Glucose 96 mg/dL (70-100); HEMOLYSIS < 15 (0-50); Potassium 4.1 mmol/L (3.4-5.1); Sodium 139 mmol/L (137-145); Total Protein 6.6 g/dL (6.3-8.2); Uric Acid 6.5 mg/dL (2.5-6.2)
--- NOTE | 2024-04-09 12:03 | PC.NURSE ---
1130 RN at bedside. DTRs assessed. 2+ patellar bilaterally. no clonus present.
--- NOTE | 2024-04-09 12:03 | PC.NURSE ---
1134 blood pressure is 136/73. 1149 blood pressure is 139/79.
[2024-04-09 12:04] LABS: Add Manual Diff / Slide Review NO; Basophils Absolute Auto 100 /uL (0-100); Basophils Percent Auto 0.7 % (0-2); Eosinophils Absolute Auto 200 /uL (0-450); Eosinophils Percent Auto 2.2 % (2-4); Hematocrit 31.6 % (36-46); Hemoglobin 10.3 g/dL (12.0-16.0); Lymphocytes Absolute Auto 1900 /uL (1100-4500); Mean Corpuscular HGB Conc 32.4 % (30-36); Mean Corpuscular Hemoglobin 26.3 PG (26-34); Mean Corpuscular Volume 81.1 fL (80-100); Monocytes Absolute Auto 700 /uL (0-900); Monocytes Percent Auto 6.8 % (3-14); Neutrophils Absolute Auto 7600 /uL (1500-7000); Neutrophils Percent Auto 72.3 % (50-75); Platelet Count 393 X10^3/uL (150-400); Red Blood Cell Count 3.89 X10^6/uL (4.0-5.2); Red Cell Distribution Width 15.8 % (11.6-14.8); White Blood Cell Count 10.5 X10^3/uL (4.5-11.0)
[2024-04-09 12:06] VITALS: BP 164/97
[2024-04-09 12:13] VITALS: BP 146/82
--- NOTE | 2024-04-09 12:17 | PC.NURSE ---
patient was emotional when blood pressure cycled. patient was talking to RN about her section and events from previous week.
[2024-04-09 12:18] LABS: Creatinine Urine Random 28.19 mg/dL; Protein (Total) Urine Random 23 mg/dL (0-12); Protein Creatinine Ratio Urine 0.81 GRAM/24H
--- NOTE | 2024-04-09 12:19 | PC.NURSE ---
breath sounds clear bilaterally in all lobes. no shortness of breath reported from patient.
--- NOTE | 2024-04-09 12:27 | PM.OBTRLD ---
Visit Information Visit Information Date of evaluation: 04/09/24 Primary OB Provider: Fernanda Antunez Comments/Additional reasons for admission: r/o pre-eclampsia Vital Signs Vital Signs: Vital Signs - 8 hr 04/09/24 11:18 04/09/24 11:34 04/09/24 11:49 Pulse Rate 88 Respiratory Rate 16 Blood Pressure 137/76 136/73 139/79 Pulse Oximetry 99 04/09/24 12:06 04/09/24 12:13 Pulse Rate Respiratory Rate Blood Pressure 164/97 H 146/82 H Pulse Oximetry COUNT INCLUDES THE [facility] Medical History (Updated 04/05/24 @ 16:31 by Babatunde Silveira MD) Gestational hypertension Chronic diarrhea Presence of intrauterine contraceptive device (04/27/17) Generalized anxiety disorder Surgical History History of surgery of liver [place] teeth extracted Status post cholecystectomy (~2006) Family History Mother Bipolar disorder Alcoholism Father Hypertension Drug abuse Heart disease Grandmother Hypertension Stroke Grandfather Hypertension Diabetes mellitus Alcoholism Uncle Heart disease Social History marital status: number of children: 1 household members: spouse and family lives independently: Yes caregiver/support person: Yes housing: house pets and animals: Yes (dogs, cat, chickens; aware of precautions, managing litter box) education level: college occupational status: employed current occupational exposures/hazards: Yes ([employer]) special kermit needs: No travel history: recent seatbelt use: always helmet use: Yes water heater temp set < 120 deg: Yes working smoke detector in home: Yes fire extinguisher in home: No (Will get one today) carbon monox detector in home: Yes firearms in home: Yes firearms unloaded and locked: Yes do you feel safe at home: Yes Smoking Status: Never smoker second hand exposure: No alcohol intake: former substance use type: marijuana during the past year weight has: increased > 10 lbs well-balanced diet: daily or most days daily servings fruits/ve or more times/day caffeine: Yes (not since learning of , causing anxiety now) Type(s) of exercise: walking, bicycling, weight lifting and other frequency: 3-4 times per week Review of Systems Review of Systems ROS: Yes All systems reviewed with the patient and are negative except as otherwise documented Exam Vital Signs (past 8 hours): - 04/09/24 11:18 04/09/24 11:34 04/09/24 11:49 Pulse Rate 88 Respiratory Rate 16 Blood Pressure 137/76 136/73 139/79 Pulse Oximetry 99 04/09/24 12:06 04/09/24 12:13 Pulse Rate Respiratory Rate Blood Pressure 164/97 H 146/82 H Pulse Oximetry Objective Labs 04/09/24 11:40 04/09/24 11:40 Labs: Laboratory Results - last 24 hr 04/09/24 11:40 WBC 10.5 RBC 3.89 L Hgb 10.3 L Hct 31.6 L MCV 81.1 MCH 26.3 MCHC 32.4 RDW 15.8 H Plt Count 393 Neut % (Auto) 72.3 Lymph % (Auto) 18.0 L [place] % (Auto) 6.8 Eos % (Auto) 2.2 Baso % (Auto) 0.7 Neut # (Auto) 7600 H Lymph # (Auto) 1900 [place] # (Auto) 700 Eos # (Auto) 200 Baso # (Auto) 100 Sodium 139 Potassium 4.1 Chloride 104 Carbon Dioxide 27 BUN 13 Creatinine 0.68 Estimated GFR > 60 BUN/Creatinine Ratio 19.1 Glucose 96 Uric Acid 6.5 H Calcium 9.6 Total Bilirubin 0.7 AST 26 ALT 17 Alkaline Phosphatase 91 Total Protein 6.6 Albumin 3.5 Globulin 3.1 Albumin/Globulin Ratio 1.1 U Random Total Protein 23 H Urine Creatinine 28.19 Protein/Creatinin Ratio 0.81 Diagnosis, Plan/Disposition Final Diagnosis (1) Pre-eclampsia affecting puerperium: Status: Acute Plan/Disposition Plan: 34yo [id number] POD#5 s/p PLTCS with course c/b gHTN, and course c/b pre-e with severe features based on creatinine bump to 1.38. She received 24hrs of magnesium while inpatient for her delivery. Today she reports some blurry vision, but otherwise denied headache, RUQ pain, chest pain, or shortness of breath. Labs reviewed today, with no concerning findings. Urine p:c difficult to interpret given lochia, but regardless, wouldn't manager of change at this time. Given her mild range blood pressures today, will start her on oral 30mg nifedipine XR daily. -pt to keep her outpatient follow-up on 04/17 as scheduled OB Disposition: home
--- NOTE | 2024-04-09 12:28 | PC.NURSE ---
RN reviewed lab results, assessment and vital signs with provider Dr. Sanabria. per Dr. Sanabria we will start her on 30 mg nifedripine ER once daily. I will send it to her pharmacy. Please give her the first dose of nifedipine now and send her home. I will also order more lasix for her
[2024-04-09] MEDS: NIFEdipine 30 MG TAB ER PO (12:34)
[2024-04-09 12:35] VITALS: BP 137/74; PULSE 67; RESP 16; TEMP 36.2; O2SAT 99
--- NOTE | 2024-04-09 12:44 | PC.NURSE ---
RN providing discharge instructions to patient. patient understands new medication prescribed and when to come back to the hospital.
== END 2024-04-09 12:42 | disposition home or self-care (01) ==
PROVIDERS: Admitting Provider Student in an Organized Health Care Education/Training Program; PCP Family Medicine; Referring Provider Student in an Organized Health Care Education/Training Program; Visit Provider Student in an Organized Health Care Education/Training Program
DX: O14.95 Unspecified pre-eclampsia, complicating the puerperium (principal)
CPT/HCPCS: 36415; 80053; 82570; 84156; 84550; 85025; G0378; G0379

== ENCOUNTER → 2024-09-28 07:18 | Outpatient (CLI) | payer OTHER, SELFPAY ==
[2024-09-28 08:22] LABS: Add Manual Diff / Slide Review NO; Basophils Absolute Auto 100 /uL (0-100); Basophils Percent Auto 0.9 % (0-2); Eosinophils Absolute Auto 500 /uL (0-450); Eosinophils Percent Auto 6.6 % (2-4); Hematocrit 39.2 % (36-46); Hemoglobin 13.4 g/dL (12.0-16.0); Lymphocytes Absolute Auto 2300 /uL (1100-4500); Mean Corpuscular HGB Conc 34.2 % (30-36); Mean Corpuscular Hemoglobin 28.5 PG (26-34); Mean Corpuscular Volume 83.4 fL (80-100); Monocytes Absolute Auto 500 /uL (0-900); Monocytes Percent Auto 6.3 % (3-14); Neutrophils Absolute Auto 4100 /uL (1500-7000); Neutrophils Percent Auto 55.2 % (50-75); Platelet Count 274 X10^3/uL (150-400); Red Cell Distribution Width 14.4 % (11.6-14.8); White Blood Cell Count 7.4 X10^3/uL (4.5-11.0)
[2024-09-28 08:38] LABS: Alanine Aminotransferase 56 IU/L (<35); Albumin 4.5 g/dL (3.5-5.0); Albumin Globulin Ratio 1.7 (1.0-2.8); Alkaline Phosphatase 85 U/L (38-126); Aspartate Aminotransferase 39 IU/L (14-36); BUN Creatinine Ratio 21.1 (6-22); Bilirubin Total 1.3 mg/dL (0.2-1.3); Blood Urea Nitrogen 15 mg/dL (7-17); Calcium 9.4 mg/dL (8.4-10.2); Carbon Dioxide 26 mmol/L (22-32); Chloride 103 mmol/L (98-107); Estimated Glomerular Filt Rate > 60 mL/min (>60); Globulin 2.7 g/dL (1.7-4.1); Glucose 98 mg/dL (70-99); HEMOLYSIS < 15 (0-50); Potassium 4.5 mmol/L (3.4-5.1); Sodium 138 mmol/L (137-145); Total Protein 7.2 g/dL (6.3-8.2)
[2024-09-28 08:53] LABS: Free T3, Triiodothyronine Free 3.43 pg/mL (2.77-5.27); Free T4, Direct Thyroxine 0.98 ng/dL (0.78-2.19)
[2024-09-28 09:07] LABS: Thyroid Stimulating Hormone 1.97 uIU/mL (0.47-4.68)
== END ==
PROVIDERS: PCP Family Medicine; Visit Provider Massage Therapist
DX: R42 Dizziness and giddiness (principal); R11.10 Vomiting, unspecified; R53.83 Other fatigue
CPT/HCPCS: 36415; 80053; 84439; 84443; 84481; 85025

== ENCOUNTER → 2025-03-25 09:46 | Outpatient (CLI) | payer OTHER, SELFPAY ==
[2025-03-26 20:40] LABS: Deamidated Gliadin Ab IgA 4 units (0-19); Deamidated Gliadin Ab IgG 1 units (0-19); Immunoglobulin A,Qn 225 mg/dL (87-352)
== END ==
PROVIDERS: PCP Family Medicine; Referring Provider Family Medicine; Visit Provider Family Medicine
DX: K92.9 Disease of digestive system, unspecified (principal); F41.1 Generalized anxiety disorder; G89.29 Other chronic pain; M25.50 Pain in unspecified joint; Z83.49 Family history of other endocrine, nutritional and metabolic diseases
CPT/HCPCS: 36415; 82784; 83516